=== PATIENT | female | born 1955 | race Caucasian/White ===

== ENCOUNTER → 2016-12-26 | Outpatient (CLI) | payer OTHER ==
--- NOTE | 2016-12-26 16:23 | BD ---
EXAMINATION TYPE: MG DEXA axial skeleton. DATE OF EXAM: 12/26/2016 10:04 AM COMPARISON: NONE CLINICAL HISTORY: 61-year-old female n95.1 post menopausal symptoms Height: 63.5 Weight: 213 FRAX RISK QUESTIONS: Alcohol (3 or more units per day): NO Family History (Parent hip fracture): NO Glucocorticoids (More than 3mos): NO (Ex: prednisone, prednisolone, methylprednisolone, dexamethasone, and hydrocortisone). History of Fracture in Adulthood: NO Secondary Osteoporosis: NO 1. Type 1 Diabetes: NO 2. Hyperthyroidism: NO 3. Menopause before 45: NO 4. Malnutrition: NO 5. Chronic liver disease: NO Rheumatoid Arthritis: NO Current Tobacco Use: NO RISK FACTORS HISTORY OF: Family History of Osteoporosis: UNKNOWN Smoke tobacco: QUIT 16 YRS AGO Drink Alcohol: SOCIAL Active: YES Diet low in dairy products/other sources of calcium: NO Postmenopausal woman: YES AT 57 YRS OLD Take estrogen and/or progesterone medications: NONE NOW BUT TOOK FOR 3 YRS Lost more than 2 inches in height since high school: NO Adrenal Insufficiency: NO MEDICATIONS: Additional Medications: BP MEDS, TRAZODONE FOR SLEEPING ONLY, VIT D3, Additional History: NONE TO NOTE EXAM MEASUREMENTS: Bone mineral densitometry was performed using the [employer]. Bone mineral density as measured about the Lumbar spine is: ----- L1-L4(G/cm2): 1.343 T Score Values are as follows: ----- L1: 1.1 ----- L2: 0.8 ----- L3: 1.3 ----- L4: 2.0 ----- L1-L4: 1.4 Bone mineral density THIS IS HER FIRST BONE DENSITY STUDY......BASELINE Bone mineral density about the R hip (g/cm2): 1.158 Bone mineral density about the L hip (g/cm2): 1.177 T Score values are as follows: -----R Neck: 0.9 -----L Neck: 1.0 -----R Intertrochanter: 1.5 -----L Intertrochanter: 1.9 Bone mineral density THIS IS THE PATIENTS FIRST BONE DENSITY STUDY.......BASELINE FRAX %'S: FOR MAJOR OSTEOPOROTIC FX: 4.9%.......FOR HIP FX: 0.0% PROBABILITY OF FX IN 10 YRS TIME IMPRESSION: Normal bone mineral density as measured in the lumbar spine and both hips. Rescreen in 5 years. NOTE: T-SCORE=SD OF THE YOUNG ADULT MEAN.
--- NOTE | 2016-12-27 10:09 | MM ---
Reason for exam: screening (asymptomatic). Last mammogram was performed 1 year ago. History: Patient is postmenopausal and had first child at age 34. Took estrogen for 3 years beginning at age 57. Took progesterone for 3 years beginning at age 57. Physical Findings: A clinical breast exam by your physician is recommended on an annual basis and results should be correlated with mammographic findings. MG 3D Screening Mammo W/Cad Bilateral CC and MLO view(s) were taken. Prior study comparison: December 23, 2015, bilateral MG 3d screening mammo w/cad. December 22, 2014, bilateral MG screening mammo w CAD. There are scattered fibroglandular densities. There is no discrete abnormality. No significant changes when compared with prior studies. ASSESSMENT: Negative, BI-RAD 1 RECOMMENDATION: Routine screening mammogram of both breasts in 1 year.
== END | disposition home or self-care (01) ==
LOC: RADMAMWWP 09:28
PROVIDERS: ATTEND Obstetrics & Gynecology
DX: Z12.31 Encounter for screening mammogram for malignant neoplasm of breast (principal); N95.1 Menopausal and female climacteric states
CPT/HCPCS: 77080; 77063; G0202

== ENCOUNTER → 2017-12-27 | Outpatient (CLI) | payer BC ==
--- NOTE | 2017-12-29 08:50 | MM ---
Reason for exam: screening (asymptomatic). Last mammogram was performed 1 year ago. History: Patient is postmenopausal and had first child at age 34. Took estrogen for 3 years beginning at age 57. Took progesterone for 3 years beginning at age 57. Physical Findings: A clinical breast exam by your physician is recommended on an annual basis and results should be correlated with mammographic findings. MG Screening Mammo w CAD Bilateral CC and MLO view(s) were taken. Prior study comparison: December 26, 2016, bilateral MG 3d screening mammo w/cad. December 23, 2015, bilateral MG 3d screening mammo w/cad. No significant changes when compared with prior studies. ASSESSMENT: Negative, BI-RAD 1 RECOMMENDATION: Routine screening mammogram of both breasts in 1 year.
== END | disposition home or self-care (01) ==
LOC: RADMAMWWP 15:37
PROVIDERS: ATTEND Obstetrics & Gynecology
DX: Z12.31 Encounter for screening mammogram for malignant neoplasm of breast (principal)
CPT/HCPCS: 77067

== ENCOUNTER → 2019-01-09 | Outpatient (CLI) | payer BC ==
--- NOTE | 2019-01-11 09:35 | MM ---
Reason for exam: screening (asymptomatic). Last mammogram was performed 1 year ago. History: Patient is postmenopausal and had first child at age 34. Took estrogen for 3 years beginning at age 57. Took progesterone for 3 years beginning at age 57. Physical Findings: A clinical breast exam by your physician is recommended on an annual basis and results should be correlated with mammographic findings. MG Screening Mammo w CAD Bilateral CC and MLO view(s) were taken. Prior study comparison: December 27, 2017, bilateral MG screening mammo w CAD. December 26, 2016, bilateral MG 3d screening mammo w/cad. The breast tissue is heterogeneously dense. This may lower the sensitivity of mammography. No suspicious abnormality in the left breast. Right upper outer quadrant middle depth focal asymmetry. ASSESSMENT: Incomplete: need additional imaging evaluation, BI-RAD 0 RECOMMENDATION: Special view mammogram of the right breast. If lesion persists on supplemental views, image directed ultrasound is recommended. [facility] will attempt to contact patient to return for supplemental views and ultrasound if indicated.
== END | disposition home or self-care (01) ==
LOC: RADMAMWWP 14:05
PROVIDERS: ATTEND Obstetrics & Gynecology
DX: Z12.31 Encounter for screening mammogram for malignant neoplasm of breast (principal)
CPT/HCPCS: 77067

== ENCOUNTER → 2019-01-22 | Outpatient (CLI) | payer BC ==
--- NOTE | 2019-01-23 08:24 | USB ---
Reason for exam: additional evaluation requested from abnormal screening. History: Patient is postmenopausal and had first child at age 34. Took estrogen for 3 years beginning at age 57. Took progesterone for 3 years beginning at age 57. US Breast Workup Limited RT Right limited breast ultrasound including focal area of concern, retroareolar and axilla demonstrates no cystic or solid lesion seen. No suspicious sonographic abnormality. These results were verbally communicated with the patient and result sheet given to the patient on 01/22/19. ASSESSMENT: Negative, BI-RAD 1 RECOMMENDATION: Return to routine screening mammogram schedule for both breasts.
--- NOTE | 2019-01-23 08:24 | MM ---
Reason for exam: additional evaluation requested from abnormal screening. Last mammogram was performed less than 1 month ago. History: Patient is postmenopausal and had first child at age 34. Took estrogen for 3 years beginning at age 57. Took progesterone for 3 years beginning at age 57. Physical Findings: Nurse Summary: 0.5 x 1cm nodule in the right breast at 12 o'clock (nurse ts). MG Work Up Mamm w CAD RT Spot compression CC, spot compression MLO, and LM view(s) were taken of the right breast. Prior study comparison: January 09, 2019, bilateral MG screening mammo w CAD. December 27, 2017, bilateral MG screening mammo w CAD. The breast tissue is heterogeneously dense. This may lower the sensitivity of mammography. Right upper outer quadrant focal asymmetry improves on additional views however precautionary ultrasound will be performed. Additionally nursing palpated a mass at this location. These results were verbally communicated with the patient and result sheet given to the patient on 01/22/19. ASSESSMENT: Incomplete: need additional imaging evaluation, BI-RAD 0 RECOMMENDATION: Ultrasound of the right breast.
== END | disposition home or self-care (01) ==
LOC: RADMAMWWP 14:15
PROVIDERS: ATTEND Obstetrics & Gynecology
DX: R92.8 Other abnormal and inconclusive findings on diagnostic imaging of breast (principal)
CPT/HCPCS: 77065

== ENCOUNTER → 2020-04-24 | Outpatient (CLI) | payer BC ==
--- NOTE | 2020-04-27 10:38 | MM ---
Reason for exam: screening (asymptomatic). Last mammogram was performed 1 year and 3 months ago. History: Patient is postmenopausal and had first child at age 34. Took estrogen for 3 years beginning at age 57. Took progesterone for 3 years beginning at age 57. Physical Findings: A clinical breast exam by your physician is recommended on an annual basis and results should be correlated with mammographic findings. MG Screening Mammo w CAD Bilateral CC and MLO view(s) were taken. Prior study comparison: January 22, 2019, right breast MG work up mamm w CAD RT. January 09, 2019, bilateral MG screening mammo w CAD. There are scattered fibroglandular densities. Asymmetric breast tissue right stable upper outer quadrant. There is no discrete abnormality. ASSESSMENT: Negative, BI-RAD 1 RECOMMENDATION: Routine screening mammogram of both breasts in 1 year.
== END | disposition home or self-care (01) ==
LOC: RADMAMWWP 13:07
PROVIDERS: ATTEND Obstetrics & Gynecology
DX: Z12.31 Encounter for screening mammogram for malignant neoplasm of breast (principal)
CPT/HCPCS: 77067

== ENCOUNTER → 2021-10-22 | Outpatient (CLI) | payer BC ==
--- NOTE | 2021-10-25 09:11 | MM ---
Reason for exam: screening (asymptomatic). Last mammogram was performed 1 year and 6 months ago. History: Patient is postmenopausal and had first child at age 34. Took estrogen for 3 years beginning at age 57. Took progesterone for 3 years beginning at age 57. Physical Findings: A clinical breast exam by your physician is recommended on an annual basis and results should be correlated with mammographic findings. MG Screening Mammo w CAD Bilateral CC and MLO view(s) were taken. Prior study comparison: April 24, 2020, bilateral MG screening mammo w CAD. January 22, 2019, right breast MG work up mamm w CAD RT. There are scattered fibroglandular densities. There are benign appearing round calcifications in the left breast. There is no discrete abnormality. ASSESSMENT: Benign, BI-RAD 2 RECOMMENDATION: Routine screening mammogram of both breasts in 1 year.
== END | disposition home or self-care (01) ==
LOC: RADMAMWWP 09:53
PROVIDERS: ATTEND Family Medicine
DX: Z12.31 Encounter for screening mammogram for malignant neoplasm of breast (principal); Z78.0 Asymptomatic menopausal state
CPT/HCPCS: 77067

== ENCOUNTER 2022-09-12 20:23 | Emergency (ER) | payer BC ==
[2022-09-12 20:33] VITALS: TEMP 98.9
[2022-09-12] MEDS ORDERED: SODIUM CHLORIDE 0.9% 1,000 ML IV ONE (22:32)
--- NOTE | 2022-09-12 22:59 | XR ---
EXAMINATION TYPE: XR chest 2V DATE OF EXAM: 09/12/2022 COMPARISON: 03/17/2014 HISTORY: Chest pain TECHNIQUE: FINDINGS: Heart and mediastinum are normal. Lungs are clear. Diaphragm is normal. Bony thorax appears normal. IMPRESSION: Normal chest. No adverse change.
[2022-09-12 23:12] LABS: Basophils # (A) 0.1 k/uL (0-0.2); Basophils % (A) 1 %; Eosinophils # (A) 0.2 k/uL (0-0.7); Eosinophils % (A) 1 %; HCT 43.6 % (34.0-46.0); HGB 15.3 gm/dL (11.4-16.0); Lymphocytes # (A) 2.4 k/uL (1.0-4.8); Lymphocytes % (A) 21 %; MCH 30.1 pg (25.0-35.0); MCHC 35.2 g/dL (31.0-37.0); MCV 85.5 fL (80.0-100.0); Mean Platelet Volume 8.5; Monocytes # (A) 0.7 k/uL (0-1.0); Monocytes % (A) 6 %; Neutrophils # (A) 7.8 k/uL (1.3-7.7); Neutrophils % (A) 69 %; Platelet Count 269 k/uL (150-450); RDW 13.3 % (11.5-15.5); WBC 11.3 k/uL (3.8-10.6)
[2022-09-12 23:26] LABS: INR 0.9 (<1.2); Partial Thromboplastin Time 23.9 sec (22.0-30.0); Prothrombin Time 10.2 sec (9.0-12.0)
[2022-09-12 23:58] LABS: ALT 26 U/L (4-34); AST 25 U/L (14-36); African American GFR (CKD) >90 (>60 ml/min/1.73 sqM); Albumin 4.1 g/dL (3.5-5.0); Alkaline Phosphatase 100 U/L (38-126); Anion Gap 9 mmol/L; Blood Urea Nitrogen 19 mg/dL (7-17); Carbon Dioxide 28 mmol/L (22-30); Chloride 101 mmol/L (98-107); Glucose 123 mg/dL (74-99); Magnesium 1.8 mg/dL (1.6-2.3); Non-African American GFR(CKD) >90 (>60 ml/min/1.73 sqM); Potassium 2.9 mmol/L (3.5-5.1); Sodium 138 mmol/L (137-145); Total Bilirubin 0.4 mg/dL (0.2-1.3); Total Protein 7.1 g/dL (6.3-8.2)
[2022-09-13] MEDS ORDERED: POTASSIUM CHLORIDE ER 20 MEQ TAB.ER PO STA (00:03)
[2022-09-13 00:13] VITALS: BP 131/83; PULSE 75; RESP 16
--- NOTE | 2022-09-13 00:43 | ED ---
General Adult HPI - General Chief complaint: Upper Respiratory Infection Stated complaint: High Heart rate, Fever Time Seen by Provider: 09/12/22 21:38 Source: patient Mode of arrival: ambulatory Limitations: no limitations - History of Present Illness Initial comments: 66-year-old female past history of hypertension presents to the emergency department for cough, congestion and fever. She was woken up in the middle of the night last night to her apple watch which was telling her that her heart rate was 120. Patient admits that she was helping palpitations. Denies any medication use for her symptoms. She denies any chest pain. No shortness of breath. No sick contacts with similar symptoms. No previous cardiac history. No calf pain or swelling. No history of DVT or PE. No other alleviating, precipitating laughing factors - Related Data Home Medications Medication Instructions Recorded Confirmed Aspirin EC [Ecotrin] 325 mg PO DAILY 03/17/14 09/12/22 Multivitamins, Thera [Multivitamin] 1 tab PO DAILY 03/17/14 09/12/22 Chlorthalidone [Hygroton] 25 mg PO DAILY 05/16/14 09/12/22 allopurinoL 300 mg PO DAILY 09/12/22 09/12/22 amLODIPine [Norvasc] 5 mg PO DAILY 09/12/22 09/12/22 Allergies Allergy/AdvReac Type Severity Reaction Status Date / Time Penicillins Allergy Rash/Hives Verified 09/12/22 22:43 Sulfa (Sulfonamide Allergy Rash/Hives Verified 09/12/22 22:43 Antibiotics) venom-honey bee AdvReac Swelling Verified 09/12/22 22:43 [bee venom (honey bee)] Review of Systems ROS Statement: Those systems with pertinent positive or pertinent negative responses have been documented in the HPI. ROS Other: All systems not noted in ROS Statement are negative. Past Medical History Past Medical History: Hypertension Additional Past Medical History / Comment(s): vertigo History of Any Multi-Drug Resistant Organisms: None Reported Past Surgical History: Tonsillectomy, Tubal Ligation Additional Past Surgical History / Comment(s): D&C Past Anesthesia/Blood Transfusion Reactions: No Reported Reaction Past Psychological History: No Psychological Hx Reported Past Alcohol Use History: Occasional Past Drug Use History: None Reported General Exam Limitations: no limitations General appearance: alert, in no apparent distress Head exam: Present: atraumatic, normocephalic, normal inspection Eye exam: Present: normal appearance, PERRL, EOMI. Absent: scleral icterus, conjunctival injection, periorbital swelling ENT exam: Present: mucous membranes moist, other (nasal congestion) Neck exam: Present: normal inspection. Absent: tenderness, meningismus, lymphadenopathy Respiratory exam: Present: normal lung sounds bilaterally. Absent: respiratory distress, wheezes, rales, rhonchi, stridor Cardiovascular Exam: Present: regular rate, normal rhythm, normal heart sounds. Absent: systolic murmur, diastolic murmur, rubs, gallop, clicks GI/Abdominal exam: Present: soft, normal bowel sounds. Absent: distended, tenderness, guarding, rebound, rigid Extremities exam: Present: normal inspection, full ROM, normal capillary refill. Absent: tenderness, pedal edema, joint swelling, calf tenderness Back exam: Present: normal inspection Neurological exam: Present: alert, oriented X3, CN II-XII intact Psychiatric exam: Present: normal affect, normal mood Skin exam: Present: warm, dry, intact, normal color. Absent: rash Course Vital Signs 09/12/22 09/13/22 20:28 00:13 Temperature 98.9 F Pulse Rate 95 75 Respiratory 18 16 Rate Blood Pressure 157/69 131/83 O2 Sat by Pulse 98 98 Oximetry EKG Findings - EKG Comments: EKG Findings:: EKG interpreted by myself which demonstrated sinus rhythm with a rate of 84. VT interval 144. QRS 109. QTC of 440. Minimal ST depression 2, 3, aVF. No ST segment elevation. Medical Decision Making - Medical Decision Making Upon arrival patient is placed into room 11. A thorough history and physical exam was performed. Patient placed on continuous pulse ox and cardiac monitoring. 12-lead EKG was obtained. Trace studies were conducted. Chest x- rays performed. Patient is swabbed for Covid and influenza. Lab studies reveal a potassium of 2.9. This is replaced. Chest x-ray demonstrates no acute process. Patient has not had any tachycardia in the emergency departments. She will be discharged home at this time. Instructed to use Mucinex for congestion. Follow-up with her primary care doctor to have her potassium levels redrawn. Also recommend echo, stress test and Holter monitoring. Patient was agreeable to this plan. Return to the ER for any new or worsening symptoms. Patient discharged home in stable condition - Lab Data Result diagrams: 09/12/22 22:42 09/12/22 23:20 Lab Results 09/12/22 09/12/22 09/12/22 Range/Units 21:33 21:33 22:42 WBC 11.3 H (3.8-10.6) k/uL RBC 5.10 (3.80-5.40) m/uL Hgb 15.3 (11.4-16.0) gm/dL Hct 43.6 (34.0-46.0) % MCV 85.5 (80.0-100.0) fL MCH 30.1 (25.0-35.0) pg MCHC 35.2 (31.0-37.0) g/dL RDW 13.3 (11.5-15.5) % Plt Count 269 (150-450) k/uL MPV 8.5 Neutrophils % 69 % Lymphocytes % 21 % Monocytes % 6 % Eosinophils % 1 % Basophils % 1 % Neutrophils # 7.8 H (1.3-7.7) k/uL Lymphocytes # 2.4 (1.0-4.8) k/uL Monocytes # 0.7 (0-1.0) k/uL Eosinophils # 0.2 (0-0.7) k/uL Basophils # 0.1 (0-0.2) k/uL PT (9.0-12.0) sec INR (<1.2) APTT (22.0-30.0) sec Sodium (137-145) mmol/L Potassium (3.5-5.1) mmol/L Chloride (98-107) mmol/L Carbon Dioxide (22-30) mmol/L Anion Gap mmol/L BUN (7-17) mg/dL Creatinine (0.52-1.04) mg/dL Est GFR (CKD-EPI)AfAm (>60 ml/min/1.73 sqM) Est GFR (CKD-EPI)NonAf (>60 ml/min/1.73 sqM) Glucose (74-99) mg/dL Calcium (8.4-10.2) mg/dL Magnesium (1.6-2.3) mg/dL Total Bilirubin (0.2-1.3) mg/dL AST (14-36) U/L ALT (4-34) U/L Alkaline Phosphatase (38-126) U/L Troponin I (0.000-0.034) ng/mL Total Protein (6.3-8.2) g/dL Albumin (3.5-5.0) g/dL Coronavirus (PCR) Not Detected (Not Detectd) Influenza Type A RNA Not Detected (Not Detectd) Influenza Type B (PCR) Not Detected (Not Detectd) 09/12/22 09/12/22 09/12/22 Range/Units 22:42 23:20 23:20 WBC (3.8-10.6) k/uL RBC (3.80-5.40) m/uL Hgb (11.4-16.0) gm/dL Hct (34.0-46.0) % MCV (80.0-100.0) fL MCH (25.0-35.0) pg MCHC (31.0-37.0) g/dL RDW (11.5-15.5) % Plt Count (150-450) k/uL MPV Neutrophils % % Lymphocytes % % Monocytes % % Eosinophils % % Basophils % % Neutrophils # (1.3-7.7) k/uL Lymphocytes # (1.0-4.8) k/uL Monocytes # (0-1.0) k/uL Eosinophils # (0-0.7) k/uL Basophils # (0-0.2) k/uL PT 10.2 (9.0-12.0) sec INR 0.9 (<1.2) APTT 23.9 (22.0-30.0) sec Sodium 138 (137-145) mmol/L Potassium 2.9 L (3.5-5.1) mmol/L Chloride 101 (98-107) mmol/L Carbon Dioxide 28 (22-30) mmol/L Anion Gap 9 mmol/L BUN 19 H (7-17) mg/dL Creatinine 0.64 (0.52-1.04) mg/dL Est GFR (CKD-EPI)AfAm >90 (>60 ml/min/1.73 sqM) Est GFR (CKD-EPI)NonAf >90 (>60 ml/min/1.73 sqM) Glucose 123 H (74-99) mg/dL Calcium 9.0 (8.4-10.2) mg/dL Magnesium 1.8 (1.6-2.3) mg/dL Total Bilirubin 0.4 (0.2-1.3) mg/dL AST 25 (14-36) U/L ALT 26 (4-34) U/L Alkaline Phosphatase 100 (38-126) U/L Troponin I <0.012 (0.000-0.034) ng/mL Total Protein 7.1 (6.3-8.2) g/dL Albumin 4.1 (3.5-5.0) g/dL Coronavirus (PCR) (Not Detectd) Influenza Type A RNA (Not Detectd) Influenza Type B (PCR) (Not Detectd) Disposition Clinical Impression: Cough, Palpitations, Hypokalemia Disposition: HOME SELF-CARE Condition: Stable Instructions (If sedation given, give patient instructions): Heart Palpitations (ED), Upper Respiratory Infection (ED) Additional Instructions: Please follow-up with your primary care doctor in 2-4 days. I recommend that they repeat your potassium levels to ensure that it has improved. I also recommended Holter monitoring, echo and stress testing. Return for any new or worsening symptoms Is patient prescribed a controlled substance at d/c from ED?: No Referrals: Robbie Colin MD [Primary Care Provider] - 1-2 days Time of Disposition: 00:50
== END 2022-09-13 01:26 | disposition home or self-care (01) ==
LOC: EC 20:23
DX: R00.2 Palpitations (principal); R05.9 Cough, unspecified; E87.6 Hypokalemia; I10 Essential (primary) hypertension; Z88.2 Allergy status to sulfonamides; Z91.030 Bee allergy status; Z79.82 Long term (current) use of aspirin; Z88.0 Allergy status to penicillin; Z20.822 Contact with and (suspected) exposure to COVID-19
CPT/HCPCS: 36415; 71046; 80053; 83735; 84484; 85025; 85610; 85730; 87502; 87635; 93005; 99284

== ENCOUNTER → 2022-10-25 | Outpatient (CLI) | payer BC ==
--- NOTE | 2022-10-25 10:45 | BD ---
EXAMINATION TYPE: Axial Bone Density DATE OF EXAM: 10/25/2022 COMPARISON: NONE CLINICAL HISTORY: 67 year old Female. ICD-10 CODE: Z78.0 asymptomatic menopausal state Height: 63 Weight: 205.8 FRAX RISK QUESTIONS: Alcohol (3 or more units per day): no Family History (Parent hip fracture): no Glucocorticoids (More than 3mos): no (Ex: prednisone, prednisolone, methylprednisolone, dexamethasone, and hydrocortisone). History of Fracture in Adulthood: no Secondary Osteoporosis: 1. Type 1 Diabetes: no 2. Hyperthyroidism: no 3. Menopause before 45: no 4. Malnutrition: no 5. Chronic liver disease: no Rheumatoid Arthritis: no Current Tobacco Use: no RISK FACTORS HISTORY OF: Surgery to Spine/Hip(right/left)/Wrist (right/left): no Family History of Osteoporosis: no Active: no Diet low in dairy products/other sources of calcium: yes Postmenopausal woman: yes Lost more than 2 inches in height since high school: no MEDICATIONS: Additional History: EXAM MEASUREMENTS: Bone mineral densitometry was performed using the [employer] System. Bone mineral density as measured about the Lumbar spine is: ----- L1-L4(G/cm2): 1.359 T Score Values are as follows: ----- L1: 1.3 ----- L2: 0.7 ----- L3: 1.4 ----- L4: 2.3 ----- L1-L4: 1.5 Bone mineral density has: increased 1.2 % since study of: 12.26.2016 Bone mineral density about the R hip (g/cm2): 1.142 Bone mineral density about the L hip (g/cm2): 1.070 T Score values are as follows: -----R Neck: 0.8 -----L Neck: 0.2 -----R Total: 1.9 -----L Total: 2.0 Bone mineral density has: decreased -4.5 % since study of: 12.26.2016 FRAX%s: The graph provided illustrates a 5.9% chance for a major osteoporotic fx and a 0.1% chance fo r the hips probability for fx in 10 years time. IMPRESSION: Normal (Values between +1 and -1 indicate normal bone mass). Consider repeating this study in 5 year s or sooner if there is some new clinical indication. NOTE: T-SCORE=SD OF THE YOUNG ADULT MEAN.
--- NOTE | 2022-10-25 12:10 | MM ---
Reason for Exam: Screening (asymptomatic). Last screening mammogram was performed 12 month(s) ago. Patient History: Menarche at age 15. First Full-Term at age 34. Late child-bearing (after 30). Postmenopausal. Estrogen for 3 years from age 57 until age 60. Progesterone for 3 years from age 57 until age 60. Risk Values: Fely 5 year model risk: 2.3%. NCI Lifetime model risk: 8.6%. Prior Study Comparison: 01/22/2019 Right Diagnostic Mammogram, [facility]. 04/24/2020 Bilateral Screening Mammogram, [facility]. 10/22/2021 Bilateral Screening Mammogram, [facility]. Tissue Density: There are scattered fibroglandular densities. Findings: Analyzed By CAD. There is no suspicious group of microcalcifications or new suspicious mass in either breast. Benign round calcification in the left breast. No significant change from prior exams. Overall Assessment: Benign, BI-RAD 2 Management: Screening Mammogram of both breasts in 1 year. A clinical breast exam by your physician is recommended on an annual basis and results should be correlated with mammographic findings. Electronically signed and approved by: Osmany Luna D.O.
== END | disposition home or self-care (01) ==
LOC: RADMAMWWP 09:11
PROVIDERS: ATTEND Family Medicine
DX: Z12.31 Encounter for screening mammogram for malignant neoplasm of breast (principal); Z78.0 Asymptomatic menopausal state
CPT/HCPCS: 77063; 77067; 77080

== ENCOUNTER 2022-10-27 08:09 | Day surgery (SDC) | payer BC ==
[2022-10-25 12:19] VITALS: BMI 36.3
--- NOTE | 2022-10-27 06:05 | P.GSHP ---
History of Present Illness H&P Date: 10/27/22 CHIEF COMPLAINT: Colon screen HISTORY OF PRESENT ILLNESS: The patient is a 67-year-old female who presents for colon screen. Lower endoscopy was offered for further evaluation and management. PAST MEDICAL HISTORY: Please see list. PAST SURGICAL HISTORY: Please see list. MEDICATIONS: Please see list. ALLERGIES: Please see list. SOCIAL HISTORY: No illicit drug use FAMILY HISTORY: No reports of Crohn disease or ulcerative colitis. REVIEW OF ORGAN SYSTEMS: CONSTITUTIONAL: No reports of fevers or chills. PHYSICAL EXAM: VITAL SIGNS: Stable GENERAL: Well-developed pleasant in no acute distress. HEENT: No scleral icterus. Extraocular movements grossly intact. Moist buccal mucosa. NECK: Supple without lymphadenopathy. CHEST: Unlabored respirations. Equal bilateral excursions. CARDIOVASCULAR: Regular rate and rhythm. Distal 2+ pulses. ABDOMEN: Soft, nontender, nondistended. MUSCULOSKELETAL: No clubbing, cyanosis, or edema. ASSESSMENT: 1. Colon screen. PLAN: 1. Recommend proceeding with a lower endoscopy Past Medical History Past Medical History: Hyperlipidemia, Hypertension, Osteoarthritis (OA) Additional Past Medical History / Comment(s): "Sinus headache today". Vertigo. History of Any Multi-Drug Resistant Organisms: None Reported Past Surgical History: Tonsillectomy, Tubal Ligation Additional Past Surgical History / Comment(s): D&C. Past Anesthesia/Blood Transfusion Reactions: No Reported Reaction Additional Past Anesthesia/Blood Transfusion Reaction / Comment(s): Vertigo. Past Psychological History: No Psychological Hx Reported Smoking Status: Former smoker Past Alcohol Use History: Occasional Additional Past Alcohol Use History / Comment(s): Quit smoking 20 yrs ago. Past Drug Use History: None Reported - Past Family History Mother Family Medical History: Cancer Additional Family Medical History / Comment(s): Kidney cancer. Medications and Allergies Home Medications Medication Instructions Recorded Confirmed Type Aspirin EC [Ecotrin] 325 mg PO DAILY 03/17/14 10/25/22 History Multivitamins, Thera [Multivitamin] 1 tab PO DAILY 03/17/14 10/25/22 History Chlorthalidone [Hygroton] 25 mg PO DAILY 05/16/14 10/25/22 History allopurinoL 300 mg PO DAILY 09/12/22 10/25/22 History amLODIPine [Norvasc] 5 mg PO QAM 09/12/22 10/25/22 History Potassium Chloride [K-Tab ER] 10 meq PO DAILY 10/25/22 10/25/22 History Allergies Allergy/AdvReac Type Severity Reaction Status Date / Time Penicillins Allergy Rash/Hives Verified 10/25/22 12:08 Sulfa (Sulfonamide Allergy Rash/Hives Verified 10/25/22 12:08 Antibiotics) venom-honey bee AdvReac Swelling Verified 10/25/22 12:08 [bee venom (honey bee)]
[~2022-10-27 08:09] MED LIST: LACTATED RINGERS 1,000 ML IV SCH
[2022-10-27 08:30] VITALS: TEMP 97.5
[2022-10-27] MEDS ORDERED: PROPOFOL 10 MG/ML 20 ML VIAL IV ONE (08:51)
--- NOTE | 2022-10-27 09:17 | P.PCN ---
Date of Procedure: 10/27/22 Description of Procedure: PREOPERATIVE DIAGNOSIS: Personal history of colon polyps Colonoscopy screening POSTOPERATIVE DIAGNOSIS: Tubular adenoma sigmoid colon Sigmoid diverticulosis Internal hemorrhoids, grade 2 OPERATION: Colonoscopy to the ileocecal valve and appendiceal orifice, cecum Colonoscopy with hot snare polypectomy SURGEON: Jeanne Quiroz MD. ANESTHESIA: MAC. INDICATIONS: The patient is an 67-year-old female who presents personal history of colon polyps. Last colonoscopy over 5 years. Benefits and risks were described and informed consent was obtained. DESCRIPTION OF PROCEDURE: The patient had undergone Sutab prep. The patient had been brought into the operating room and laid in the left lateral decubitus position. After adequate intravenous sedation, the rectum was examined with 2% lidocaine jelly. External hemorrhoids were encountered. The rectal tone was within normal limits. No lesions were palpated in the rectal vault. An Olympus colonoscope was advanced until the cecum, ileocecal valve and appendiceal orifice were clearly viewed. The prep was excellent. Sigmoid diverticulosis was encountered. Colonic polyps were found and removed. No evidence of focal colitis was found. Retroflexion of the scope demonstrated grade 3 internal hemorrhoids without active bleeding or inflammation. The colon was desufflated. The patient had tolerated the procedure well. Withdrawal time was over 6 minutes. FINDINGS: Aronchick preparation quality scale 1 (1-5) Internal hemorrhoids, grade 3 External hemorrhoids, grade 3. No arteriovenous malformations. Sigmoid diverticulosis Removal of 1 polyps: - Snare polypectomy 15 cm from the anal verge, 5 mm tubulovillous adenoma, sigmoid colon No focal colitis. RECOMMENDATIONS: Repeat colonoscopy in 3 years, 2024 Plan - Discharge Summary Discharge Rx Participant: No New Discharge Prescriptions: Continue Aspirin EC [Ecotrin] 325 mg PO DAILY Multivitamins, Thera [Multivitamin (formulary)] 1 tab PO DAILY Chlorthalidone [Hygroton] 25 mg PO DAILY amLODIPine [Norvasc] 5 mg PO QAM allopurinoL 300 mg PO DAILY Potassium Chloride [K-Tab ER] 10 meq PO DAILY Discharge Medication List Aspirin EC [Ecotrin] 325 mg PO DAILY 03/17/14 [History] Multivitamins, Thera [Multivitamin (formulary)] 1 tab PO DAILY 03/17/14 [History] Chlorthalidone [Hygroton] 25 mg PO DAILY 05/16/14 [History] allopurinoL 300 mg PO DAILY 09/12/22 [History] amLODIPine [Norvasc] 5 mg PO QAM 09/12/22 [History] Potassium Chloride [K-Tab ER] 10 meq PO DAILY 10/25/22 [History] Follow up Appointment(s)/Referral(s): Jeanne Quiroz MD [STAFF PHYSICIAN] - As Needed Patient Instructions/Handouts: Diverticulosis Diet (GEN), Diverticulosis (DC), Colorectal Polyps (GEN) Activity/Diet/Wound Care/Special Instructions: Repeat colonoscopy 3 years, 2024 Discharge Disposition: HOME SELF-CARE
[2022-10-27 09:30] VITALS: BP 142/85; PULSE 82; RESP 15
== END 2022-10-27 09:50 | disposition home or self-care (01) ==
LOC: ORWHC2ENDO 08:09
PROVIDERS: ATTEND Surgery Plastic and Reconstructive Surgery
DX: Z12.11 Encounter for screening for malignant neoplasm of colon (principal); D12.5 Benign neoplasm of sigmoid colon; K57.30 Diverticulosis of large intestine without perforation or abscess without bleeding; E78.5 Hyperlipidemia, unspecified; I10 Essential (primary) hypertension; K64.8 Other hemorrhoids; M19.90 Unspecified osteoarthritis, unspecified site; Z79.82 Long term (current) use of aspirin; Z79.899 Other long term (current) drug therapy; Z87.19 Personal history of other diseases of the digestive system; Z87.891 Personal history of nicotine dependence; Z88.0 Allergy status to penicillin; Z88.2 Allergy status to sulfonamides; Z91.030 Bee allergy status
CPT/HCPCS: 88305; 45385; J2704

== ENCOUNTER → 2023-08-28 | Outpatient (CLI) | payer BC ==
--- NOTE | 2023-08-28 15:35 | CA ---
Transthoracic Echo Report Name: Augusta Barnes Age: 67 Gender: F : 1955 Exam Date: 08/28/2023 14:38 Exam Location: [place] [facility] Ht (in): 122 Wt (lb): 77 Ordering Physician: Robbie Colin MD Attending/Referring Phys: [id number], Cristi Software Writer Jennyfer Lucio, [facility] Procedure CPT: Indications: R01.1 Murmur Cardiac Hx: Technical Quality: Good Contrast 1: Total Dose (mL): Contrast 2: Total Dose (mL): MEASUREMENTS (Male / Female) Normal Values 2D ECHO LV Diastolic Diameter PLAX 4.3 cm 4.2 - 5.9 / 3.9 - 5.3 cm LV Systolic Diameter PLAX 3.2 cm IVS Diastolic Thickness 1.3 cm 0.6 - 1.0 / 0.6 - 0.9 cm LVPW Diastolic Thickness 1.0 cm 0.6 - 1.0 / 0.6 - 0.9 cm LV Relative Wall Thickness 0.5 RV Internal Dim ED PLAX 3.3 cm LA Systolic Diameter LX 3.5 cm 3.0 - 4.0 / 2.7 - 3.8 cm LV Diastolic Volume MOD 4C 100.1 cm??? LV Systolic Volume MOD 4C 38.2 cm??? LV Ejection Fraction MOD 4C 61.8 % LV Cardiac Index MOD 4C 2250.3 cm???/min???m??? LV Diastolic Length 4C 8.0 cm LV Systolic Length 4C 6.2 cm LV Diastolic Volume MOD 2C 100.8 cm??? LV Systolic Volume MOD 2C 48.2 cm??? LV Ejection Fraction MOD 2C 52.1 % LV Cardiac Index MOD 2C 1912.3 cm???/min???m??? LV Diastolic Length 2C 7.6 cm LV Systolic Length 2C 6.3 cm LA Volume 58.3 cm??? 18 - 58 / 22 - 52 cm??? LA Volume Index 36.6 cm???/m??? 16 - 28 cm???/m??? M-MODE Aortic Root Diameter MM 3.0 cm MV E Point Septal Separation 0.6 cm AV Cusp Separation MM 2.3 cm DOPPLER AV Peak Velocity 168.1 cm/s AV Peak Gradient 11.3 mmHg MV Area PHT 3.1 cm??? Mitral E Point Velocity 68.9 cm/s Mitral A Point Velocity 86.3 cm/s Mitral E to A Ratio 0.8 MV Deceleration Time 243.9 ms MV E' Velocity 7.4 cm/s Mitral E to MV E' Ratio 9.3 TR Peak Velocity 246.6 cm/s TR Peak Gradient 24.3 mmHg Right Ventricular Systolic Press 28.8 mmHg FINDINGS Left Ventricle Left ventricular ejection fraction is estimated at 55-60 %. Left ventricular cavity size normal. Mild concentric LVH Right Ventricle Mild right ventricular dilatation. Right ventricular systolic pressure within normal limits. Right Atrium Normal right atrial size. Left Atrium Mildly increased left atrial volume. Mildly increased left atrial area. Mitral Valve Structurally normal mitral valve. No mitral stenosis, regurgitation or prolapse. Aortic Valve Trileaflet aortic valve. No aortic valve stenosis or regurgitation. Tricuspid Valve Structurally normal tricuspid valve. Mild tricuspid regurgitation. Pulmonic Valve Structurally normal pulmonic valve. Trace to mild pulmonic regurgitation. Pericardium No pericardial effusion. Aorta Normal size aortic root and proximal ascending aorta. CONCLUSIONS Left ventricular ejection fraction is estimated at 55-60 %. Mild concentric LVH. No obvious regional wall motion abnormality. No significant valvular disease. No pericardial effusion. Previewed by: Dr Charbel Singh (Electronically Signed) Final Date: 28 August 2023 15:35
== END | disposition home or self-care (01) ==
LOC: RADECHMAIN 14:20
PROVIDERS: ATTEND Family Medicine
DX: R01.1 Cardiac murmur, unspecified (principal)
CPT/HCPCS: 93306

== ENCOUNTER → 2023-09-13 | Outpatient (CLI) | payer BC ==
--- NOTE | 2023-09-13 18:05 | US ---
EXAMINATION TYPE: US thyroid st tissue head/neck DATE OF EXAM: 09/13/2023 COMPARISON: NONE CLINICAL INDICATION: Female, 67 years old with history of E05.90 Thyrotoxicosis; Thyrotoxicosis. GLAND SIZE: Right Lobe: 4.7 x 2.5 x 2.2 cm Overall Parenchyma: heterogenous Left Lobe: 5.4 x 1.9 x 2.3 cm Overall Parenchyma: heterogenous Isthmus Thickness: 0.36 cm NODULES RIGHT: # of nodules measured on right: 2 1. 1.2 X 1.0 x 1.1 cm, mid mid, solid or almost completely solid, isoechoic nodule, which is taller than wide, with smooth margins, without echogenic foci. TR 4. Prior size: no prior 2. 1.9 X 1.9 x 1.0 cm, lower medial, solid or almost completely solid, hypoechoic nodule, which is wider than tall, with smooth margins, without echogenic foci. TR 3. Prior size: no prior LEFT: # of nodules measured on left: 1 1. 1.5 X 1.5 x 1.6 cm, mid mid, mixed cystic and solid, hypoechoic nodule, which is taller than wid e, with smooth margins, without echogenic foci. TR 4. Prior size: no prior ISTHMUS: # of nodules measured in the isthmus: 0 Bilateral neck scanned, no evidence of lymphadenopathy. IMPRESSION: 1. Left thyroid lobe 1.6 cm TR 4 nodule. Fine needle aspiration is recommended. 2. There are 2 right thyroid nodules with largest measuring 1.9 cm. Follow-up ultrasound in one year is recommended.
== END | disposition home or self-care (01) ==
LOC: RADUSWWP 16:51
PROVIDERS: ATTEND Family Medicine
DX: E04.2 Nontoxic multinodular goiter (principal); E05.90 Thyrotoxicosis, unspecified without thyrotoxic crisis or storm
CPT/HCPCS: 76536

== ENCOUNTER → 2023-11-13 | Outpatient (CLI) | payer BC ==
--- NOTE | 2023-11-13 15:14 | XR ---
EXAMINATION TYPE: XR Hip LT and AP Pelvis DATE OF EXAM: 11/13/2023 COMPARISON: None HISTORY: Sharp pain left groin TECHNIQUE: AP pelvis and two-view left hip FINDINGS: Femoral heads articulate with the acetabulum. Symphysis pubis and sacroiliac joints are nor mal. No acute fracture or dislocation is evident. Note is made of narrowing of the right joint space. Follow up exams can be performed 7-10 days from acute trauma for continued pain. IMPRESSION: 1. No acute osseous abnormality left hip
== END | disposition home or self-care (01) ==
LOC: RADXRMAIN 14:40
PROVIDERS: ATTEND Nurse Practitioner Family
DX: M25.552 Pain in left hip (principal)
CPT/HCPCS: 73502

== ENCOUNTER → 2023-11-15 | Outpatient (CLI) | payer BC ==
--- NOTE | 2023-11-19 15:36 | MM ---
Reason for Exam: Screening (asymptomatic). Last mammogram was performed 1 year(s) and 1 month(s) ago. Patient History: Menarche at age 15. First Full-Term at age 34. Late child-bearing (after 32). Postmenopausal. Estrogen for 3 years from age 57 until age 60. Progesterone for 3 years from age 57 until age 60. Risk Values: Fely 5 year model risk: 2.3%. NCI Lifetime model risk: 8.2%. Prior Study Comparison: 04/24/2020 Bilateral Screening Mammogram, [facility]. 10/22/2021 Bilateral Screening Mammogram, [facility]. 10/25/2022 Bilateral MG 3D screening mammo w/cad, [facility]. Tissue Density: There are scattered fibroglandular densities. Findings: Analyzed By CAD. The pattern is symmetrical and stable. No significant interval changes. No suspicious groups of microcalcifications, spiculated or lobular masses, architectural distortion or other secondary signs of malignancy are mammographically apparent. Overall Assessment: Benign, BI-RAD 2 Management: Screening Mammogram of both breasts in 1 year. A negative mammogram report should not preclude additional follow up of suspicious palpable abnormalities. Patient should continue monthly self breast exam. A clinical breast exam by your physician is recommended on an annual basis and results should be correlated with mammographic findings. Electronically signed and approved by: Romero Ca D.O. Radiologis
== END | disposition home or self-care (01) ==
LOC: RADMAMWWP 14:16
PROVIDERS: ATTEND Family Medicine
DX: Z12.31 Encounter for screening mammogram for malignant neoplasm of breast (principal); Z78.0 Asymptomatic menopausal state
CPT/HCPCS: 77063; 77067

== ENCOUNTER → 2024-02-26 | Outpatient (CLI) | payer BC ==
--- NOTE | 2024-02-27 07:28 | US ---
EXAMINATION TYPE: US carotid duplex BILAT DATE OF EXAM: 02/26/2024 COMPARISON: NONE CLINICAL INDICATION: Female, 68 years old with history of I65.23 OCCLUSION AND STENOSIS OF BILATERAL CAROTID; stenosis TECHNIQUE: Carotid duplex ultrasound examination. Indirect Doppler criteria was utilized. FINDINGS: EXAM MEASUREMENTS: RIGHT: Peak Systolic Velocity (PSV) cm/sec ----- Right CCA: 113 ----- Right ICA: 101 ----- Right ECA: 132 ICA/CCA ratio: .9 RIGHT: End Diastole cm/sec ----- Right CCA: 19.9 ----- Right ICA: 26.3 ----- Right ECA: 24.5 LEFT: Peak Systolic Velocity (PSV) cm/sec ----- Left CCA: 111 ----- Left ICA: 95.1 ----- Left ECA: 111 ICA/CCA ratio: .9 LEFT: End Diastole cm/sec ----- Left CCA: 19 ----- Left ICA: 26.3 ----- Left ECA: 19.9 VERTEBRALS (direction of flow): Right Vertebral: Antegrade Left Vertebral: Antegrade Rhythm: Normal [place] NOTES: No significant stenosis seen IMPRESSION: No evidence for hemodynamically significant stenosis. Criteria for Assigning % of Stenosis / Diameter reduction (Estimation based on the indirect measurements of the internal carotid artery velocities (ICA PSV). 1. Normal (no stenosis)=ICA PSV < 125 cm/s: ratio < 2.0: ICA EDV<40 cm/s. 2. Less than 50% stenosis=ICA PSV < 125 cm/s: ratio < 2.0: ICA EDV<40 cm/s. 3. 50 to 69% stenosis=ICA PSV of 125 to 230 cm/s: ration 2.0 ? 4.0: ICA EDV 40-100 cm/s. 4. Greater than 70% stenosis to near occlusion= ICA PSV > 230 cm/s: ratio > 4.0: ICA EDV > 100 cm/s. 5. Near occlusion= ICA PSV velocities may be low or undetectable: variable ratio and ICA EDV. 6. Total occlusion=unable to detect flow.
== END | disposition home or self-care (01) ==
LOC: RADUSWWP 15:18
PROVIDERS: ATTEND Internal Medicine
DX: I65.23 Occlusion and stenosis of bilateral carotid arteries (principal)
CPT/HCPCS: 93880

== ENCOUNTER 2024-04-11 17:20 | Emergency (ER) | payer BC ==
[2024-04-11 17:28] VITALS: TEMP 97.9
--- NOTE | 2024-04-11 18:09 | ED ---
Extremity Problem HPI - General Chief complaint: Extremity Problem,Nontraumatic Stated complaint: L leg edema Time Seen by Provider: 04/11/24 17:40 Source: patient, RN notes reviewed Mode of arrival: ambulatory Limitations: no limitations - History of Present Illness Initial comments: 68-year-old female with past medical history of hypertension presenting to the ER with chief complaint of bilateral leg swelling and pain x 3 and half weeks. States she has pain in her calves after she has been on her feet for long periods of time. States they are not currently painful or swollen because she has not been on her feet today but she is very concerned for a blood clot. Denies chest pain or shortness of breath. She takes medication for blood pressure and an aspirin. Denies blood thinners. Denies history of DVT. Denies recent travel, surgeries. She is a non-smoker. Denies injury or trauma. Denies numbness or tingling. States her PCP ordered an ultrasound to rule out blood clots however she wanted this ultrasound done today. - Related Data Home Medications Medication Instructions Recorded Confirmed Atorvastatin [Lipitor] 40 mg PO HS 04/11/24 04/11/24 amLODIPine [Norvasc] 10 mg PO DIRECTED 04/11/24 04/11/24 lisinopriL [Zestril] 20 mg PO DIRECTED 04/11/24 04/11/24 Allergies Allergy/AdvReac Type Severity Reaction Status Date / Time Penicillins Allergy Rash/Hives Verified 04/11/24 17:47 Sulfa (Sulfonamide Allergy Rash/Hives Verified 04/11/24 17:47 Antibiotics) venom-honey bee Allergy Swelling Verified 04/11/24 17:47 [bee venom (honey bee)] Review of Systems ROS Statement: Those systems with pertinent positive or pertinent negative responses have been documented in the HPI. ROS Other: All systems not noted in ROS Statement are negative. Past Medical History Past Medical History: Hypertension Additional Past Medical History / Comment(s): vertigo History of Any Multi-Drug Resistant Organisms: None Reported Past Surgical History: Tonsillectomy, Tubal Ligation Additional Past Surgical History / Comment(s): D&C Past Anesthesia/Blood Transfusion Reactions: No Reported Reaction Past Psychological History: No Psychological Hx Reported Smoking Status: Former smoker Past Alcohol Use History: Occasional Past Drug Use History: None Reported General Exam Limitations: no limitations General appearance: alert, in no apparent distress Head exam: Present: atraumatic, normocephalic, normal inspection Eye exam: Present: normal appearance, PERRL, EOMI. Absent: scleral icterus, conjunctival injection, periorbital swelling ENT exam: Present: normal exam, mucous membranes moist Neck exam: Present: normal inspection. Absent: tenderness, meningismus, lymphadenopathy Respiratory exam: Present: normal lung sounds bilaterally. Absent: respiratory distress, wheezes, rales, rhonchi, stridor Cardiovascular Exam: Present: regular rate, normal rhythm, normal heart sounds. Absent: systolic murmur, diastolic murmur, rubs, gallop, clicks Extremities exam: Present: normal inspection, full ROM, normal capillary refill, other (No calf tenderness, erythema, or edema. Negative Homans. Full range of motion of bilateral knees, ankles, and all digits. Full sensation. Dorsalis pedis pulses intact bilaterally.). Absent: tenderness, pedal edema, joint swelling, calf tenderness Course Vital Signs 04/11/24 17:22 Temperature 97.9 F Pulse Rate 105 H Respiratory 18 Rate Blood Pressure 158/82 O2 Sat by Pulse 99 Oximetry Medical Decision Making - Medical Decision Making Was pt. sent in by a medical professional or institution (, PA, PRODUCT SUPPORT SALES REPRESENTATIVE, urgent care, hospital, or skilled nursing...) When possible be specific @ -No Did you speak to anyone other than the patient for history (EMS, parent, family, police, friend...)? What history was obtained from this source @ -Patient's daughter is present upon examination Did you review nursing and triage notes (agree or disagree)? Why? @ -I reviewed and agree with nursing and triage notes Were old charts reviewed (outside hosp., previous admission, EMS record, old EKG, old radiological studies, urgent care reports/EKG's, skilled nursing records)? Report findings @ -No old charts were reviewed Differential Diagnosis (chest pain, altered mental status, abdominal pain women, abdominal pain men, vaginal bleeding, weakness, fever, dyspnea, syncope, headache, dizziness, GI bleed, back pain, seizure, CVA, palpatations, mental health, musculoskeletal)? @ -Differential Musculoskeletal Dependent edema, CHF, CKD, muscular strain, contusion, ligament sprain, fracture, arthritis, septic arthritis, bursitis, cellulitis, muscle spasm, nerve compression, DVT, arterial occlusion, herpes zoster, electrolyte abnormality, tumor.... This is not meant to be in all inclusive list EKG interpreted by me (3pts min.). @ -None X-rays interpreted by me (1pt min.). @ -None done CT interpreted by me (1pt min.). @ -None done U/S interpreted by me (1pt. min.). @ -Bilateral ultrasounds negative for DVT What testing was considered but not performed or refused? (CT, X-rays, U/S, labs)? Why? @ -Chest x-ray not performed due to no history of CHF or chest pain, shortness of breath What meds were considered but not given or refused? Why? @ -None Did you discuss the management of the patient with other professionals ( professionals i.e. , PA, PRODUCT SUPPORT SALES REPRESENTATIVE, lab, RT, psych nurse, clinical social work therapist, dealer analyst, teacher, school services officer, immigration case manager)? Give summary @ -No Was smoking cessation discussed for >3mins.? @ -No Was critical care preformed (if so, how long)? @ -No Were there social determinants of health that impacted care today? How? (Homelessness, low income, unemployed, alcoholism, drug addiction, transportation, low edu. Level, literacy, decrease access to med. care, half-way, rehab)? @ -No Was there de-escalation of care discussed even if they declined (Discuss DNR or withdrawal of care, Hospice)? DNR status @ -No What co-morbidities impacted this encounter? (DM, HTN, Smoking, COPD, CAD, Cancer, CVA, ARF, Chemo, Hep., AIDS, mental health diagnosis, sleep apnea, morbid obesity)? @ -None Was patient admitted / discharged? Hospital course, mention meds given and route, prescriptions, significant lab abnormalities, going to OR and other pertinent info. @ -Patient was discharged. Patient was seen and evaluated for bilateral leg edema and pain x 3 weeks. Patient is not currently having symptoms but wants to rule out blood clot today. Patient is neurovascularly intact. Bilateral ultrasounds are negative for DVT. Lab work unremarkable. Discussed with patient and daughter there is no sign of DVT, CHF, renal or liver failure upon examination that is causing symptoms today. Discussed likely diagnosis of d ependent edema. Supportive care such as compression socks discussed. Advised to follow closely with PCP. Strict return/alarm symptoms discussed with patient in detail and she shows understanding and agrees with plan. Case discussed with my attending Dr. Rdz. Patient discharged in stable condition. Undiagnosed new problem with uncertain prognosis? @ -No Drug Therapy requiring intensive monitoring for toxicity (Heparin, Nitro, Insulin, Cardizem)? @ -No Were any procedures done? @ -No Diagnosis/symptom? @ -Dependent edema Acute, or Chronic, or Acute on Chronic? @ -Acute Uncomplicated (without systemic symptoms) or Complicated (systemic symptoms)? @ -Uncomplicated Side effects of treatment? @ -No Exacerbation, Progression, or Severe Exacerbation? @ -No Poses a threat to life or bodily function? How? (Chest pain, [place], [place], pneumonia, PE, COPD, DKA, ARF, appy, cholecystitis, CVA, Diverticulitis, Homicidal, Suicidal, threat to staff... and all critical care pts) @ -No - Lab Data Result diagrams: 04/11/24 18:14 04/11/24 18:14 Lab Results 04/11/24 04/11/24 04/11/24 Range/Units 18:14 18:14 18:14 WBC 6.5 (3.8-10.6) k/uL RBC 4.50 (3.80-5.40) m/uL Hgb 13.5 (11.4-16.0) gm/dL Hct 40.4 (34.0-46.0) % MCV 89.9 (80.0-100.0) fL MCH 30.1 (25.0-35.0) pg MCHC 33.5 (31.0-37.0) g/dL RDW 14.0 (11.5-15.5) % Plt Count 265 (150-450) k/uL MPV 7.8 Neutrophils % 62 % Lymphocytes % 27 % Monocytes % 5 % Eosinophils % 4 % Basophils % 1 % Neutrophils # 4.0 (1.3-7.7) k/uL Lymphocytes # 1.7 (1.0-4.8) k/uL Monocytes # 0.3 (0-1.0) k/uL Eosinophils # 0.2 (0-0.7) k/uL Basophils # 0.1 (0-0.2) k/uL PT 11.0 (10.0-12.5) sec INR 1.0 (<1.2) APTT 22.3 (22.0-30.0) sec Sodium 142 (137-145) mmol/L Potassium 4.1 (3.5-5.1) mmol/L Chloride 111 H (98-107) mmol/L Carbon Dioxide 27 (22-30) mmol/L Anion Gap 4 mmol/L BUN 16 (7-17) mg/dL Creatinine 0.60 (0.52-1.04) mg/dL Est GFR (CKD-EPI)AfAm >90 (>60 ml/min/1.73 sqM) Est GFR (CKD-EPI)NonAf >90 (>60 ml/min/1.73 sqM) Glucose 98 (74-99) mg/dL Calcium 9.5 (8.4-10.2) mg/dL Total Bilirubin 0.8 (0.2-1.3) mg/dL AST 31 (14-36) U/L ALT 30 (4-34) U/L Alkaline Phosphatase 79 (38-126) U/L NT-Pro-B Natriuret Pep 81 pg/mL Total Protein 7.0 (6.3-8.2) g/dL Albumin 4.2 (3.5-5.0) g/dL Disposition Clinical Impression: Dependent edema Disposition: HOME SELF-CARE Condition: Stable Instructions (If sedation given, give patient instructions): Leg Edema (ED) Additional Instructions: Please follow-up with PCP for further evaluation. Please return to the Emergency Department if symptoms worsen or any other concerns. Is patient prescribed a controlled substance at d/c from ED?: No Referrals: Amor Perea MD [Primary Care Provider] - 1-2 days Time of Disposition: 19:50
[2024-04-11 18:32] LABS: Basophils # (A) 0.1 k/uL (0-0.2); Basophils % (A) 1 %; Eosinophils # (A) 0.2 k/uL (0-0.7); Eosinophils % (A) 4 %; HCT 40.4 % (34.0-46.0); HGB 13.5 gm/dL (11.4-16.0); Lymphocytes # (A) 1.7 k/uL (1.0-4.8); Lymphocytes % (A) 27 %; MCH 30.1 pg (25.0-35.0); MCHC 33.5 g/dL (31.0-37.0); MCV 89.9 fL (80.0-100.0); Mean Platelet Volume 7.8; Monocytes # (A) 0.3 k/uL (0-1.0); Monocytes % (A) 5 %; Neutrophils % (A) 62 %; Platelet Count 265 k/uL (150-450); WBC 6.5 k/uL (3.8-10.6)
[2024-04-11 18:43] LABS: ALT 30 U/L (4-34); AST 31 U/L (14-36); African American GFR (CKD) >90 (>60 ml/min/1.73 sqM); Albumin 4.2 g/dL (3.5-5.0); Alkaline Phosphatase 79 U/L (38-126); Anion Gap 4 mmol/L; Blood Urea Nitrogen 16 mg/dL (7-17); Calcium 9.5 mg/dL (8.4-10.2); Carbon Dioxide 27 mmol/L (22-30); Chloride 111 mmol/L (98-107); Glucose 98 mg/dL (74-99); Non-African American GFR(CKD) >90 (>60 ml/min/1.73 sqM); Potassium 4.1 mmol/L (3.5-5.1); Sodium 142 mmol/L (137-145); Total Bilirubin 0.8 mg/dL (0.2-1.3)
[2024-04-11 18:52] LABS: NT-Pro-B-Type Natriuretic Pept 81 pg/mL
[2024-04-11 18:53] LABS: Partial Thromboplastin Time 22.3 sec (22.0-30.0)
--- NOTE | 2024-04-11 19:09 | US ---
EXAMINATION TYPE: US venous doppler duplex LE BI DATE OF EXAM: 04/11/2024 6:30 PM COMPARISON: NONE CLINICAL INDICATION: Female, 68 years old with history of LE edema/pain; Patient states leg swelling for about 3 weeks, pain started recently. SIDE PERFORMED: Bilateral TECHNIQUE: The lower extremity deep venous system is examined utilizing real time linear array sonog luzma with graded compression, doppler sonography and color-flow sonography. VESSELS IMAGED: Common Femoral Vein Deep Femoral Vein Greater Saphenous Vein * Femoral Vein Popliteal Vein Small Saphenous Vein * Proximal Calf Veins (* superficial vessels) Right Leg: Negative for DVT Left Leg: Negative for DVT IMPRESSION: No evidence for DVT within the bilateral lower extremities imaged from the groin to the upper calves.
[2024-04-11 19:57] VITALS: BP 119/74; PULSE 69; RESP 16
== END 2024-04-11 19:56 | disposition home or self-care (01) ==
LOC: EC 17:20
DX: R60.0 Localized edema (principal); Z87.891 Personal history of nicotine dependence; Z88.0 Allergy status to penicillin; Z88.2 Allergy status to sulfonamides; Z91.030 Bee allergy status
CPT/HCPCS: 36415; 80053; 83880; 85025; 85610; 85730; 93970; 99284

== ENCOUNTER → 2024-06-03 | Outpatient (CLI) | payer BC ==
[2024-06-03 14:24] VITALS: BP 155/82; PULSE 57; RESP 18; TEMP 98.1
--- NOTE | 2024-06-03 16:26 | P.SLEEP ---
History of Present Illness DATE: 06/03/2024 CONSULTATION/NEW PATIENT EVALUATION HISTORY OF PRESENT ILLNESS/SLEEP-WAKE EVALUATION: 68-year-old lady had been e valuated in the sleep center for possible obstructive sleep apnea hypopnea syndrome. SLEEP SCHEDULE: Usually sleep schedule from 9:30 PM to 3:30 AM on weekdays and from 10 PM to 4 AM on weekend. FALLING ASLEEP: Patient has difficulties to fall asleep, although no TV in bedroom. DURING SLEEP: Patient sleeps in different positions with snoring and awakenings from sleep 3 times with dry mouth, sweating, restless leg symptoms. No history of hypnogogical hallucinations, sleep paralysis, or cataplexy. DURING THE DAY/WAKE STATE: In the morning patient wake up tired, falling asleep during the day. [place] sleepiness scale is 7. Patient may take nap at 3 PM. PAST MEDICAL HISTORY: Hypertension, vertigo, hyperlipidemia, gestational diabetes, knee arthritis. PAST SURGICAL HISTORY: Carotid endarterectomy. MEDICATIONS: Please see below. SOCIAL HISTORY: Please see below. FAMILY HISTORY: Sleep apnea, emphysema, heart problems, stroke, during the sleep. REVIEW OF SYSTEMS: Snoring, multiple awakenings from sleep. No fevers. No double vision. No recent chest pain. No shortness of breath. No abdominal pain. No bleeding episodes. No blood in urine. No seizure episodes. PHYSICAL EXAMINATION: GENERAL: A pleasant patient without any distress. VITAL SIGNS: Please see below, weight 200.0 pounds, BMI 35.5. HEENT: PERRLA, EOMI. Evaluation of oropharynx showed tongue protrudes midline, low position of soft palate Mallampati 3, some restrictions of nasal breathing, possibly nasal septal deviation. NECK: Supple. No JVD. Thyroid is not palpable. 16-1/3 inches in circumference. LUNGS: Clear to percussion and to auscultation. Good air exchange. No wheezing or rhonchi. HEART: S1, S2 regular. No murmurs, gallops or rubs. ABDOMEN: Soft and nontender. Bowel sounds are present. No organomegaly appreciated. EXTREMITIES: No clubbing or cyanosis. BLACKJACK SUPERVISOR: Awake, alert, and oriented x3. Cranial nerves 2 to 7 intact. There is no fasciculation or atrophy noted. No focal deficits observed. ASSESSMENT: 1. Snoring, multiple awakenings from sleep, low position of soft palate Mallampati 3, some restriction of nasal breathing, wide neck 16-1/3 inches in circumference. Obstructive sleep apnea hypopnea syndrome. 2. Obesity, BMI 35.5. 3. Hypertension. 4. Vertigo. 5. Hyperlipidemia. 6 . Status post carotid endarterectomy. 7. History of gestational diabetes. 8. Knee arthritis. PLAN: 1. Home sleep apnea test for evaluation of patient's breathing during sleep. 2. Following plan after reading sleep study 3. Preferable position during sleep on the side. 4. No driving if patient feels any sleepiness. Patient is aware of civil and criminal liability for unsafe driving. 5. Sleep hygiene with regular sleep time for at least 7.5-8 hours. 6. Watching and losing weight. Thank you very much for referring this patient for consultation. Sincerely, Lee Valenzuela MD, PhD, FAASM. Diplomat of [place] [employer], Sleep Medicine Board by [place] [employer] [place] [employer] [facility] [place] cc: Amor Perea MD Past Medical History Past Medical History: Hyperlipidemia, Hypertension Additional Past Medical History / Comment(s): vertigo, PLACED ON A PILL SOME YEARS AGO FOR WHAT I THINK THEY SAID WAS PERIMENOPAUSAL BLEEDING, GESTATIONAL DIABETES. History of Any Multi-Drug Resistant Organisms: None Reported Past Surgical History: Adenoidectomy, Tonsillectomy, Tubal Ligation Additional Past Surgical History / Comment(s): D&C, COLONOSCOPY, CAROTID DOPPLER, THYROID BIOPSY Past Anesthesia/Blood Transfusion Reactions: No Reported Reaction Past Psychological History: No Psychological Hx Reported Smoking Status: Former smoker Past Alcohol Use History: Occasional Past Drug Use History: None Reported - Past Family History Father Family Medical History: CVA/TIA, Hypertension Additional Family Medical History / Comment(s): (BROTHER AND SISTER ALSO HAVE HTN), FATHER PASSED DURING HIS SLEEP, SNORING Mother Family Medical History: AFIB, AICD/Pacemaker, Cancer, Thyroid Disorder Additional Family Medical History / Comment(s): KIDNEY CANCER (TUMOR REMOVED), RESTLESS LEGS, SNORING, ENLARGED THYROID AND GOITER. (ALSO - SON WITH ASTHMA, BROTHER - EMPHYSEMA, SON AND BROTHER WITH SLEEP APNEA, BROTHER - CANCER, SISTER - ACID REFLUX), Medications and Allergies Home Medications Medication Instructions Recorded Confirmed Type Atorvastatin [Lipitor] 40 mg PO HS 04/11/24 06/03/24 History amLODIPine [Norvasc] 10 mg PO DIRECTED 04/11/24 04/11/24 History lisinopriL [Zestril] 20 mg PO DAILY 04/11/24 06/03/24 History Aspirin 325 mg PO DAILY 06/03/24 06/03/24 History Allergies Allergy/AdvReac Type Severity Reaction Status Date / Time Penicillins Allergy Rash/Hives Verified 04/11/24 17:47 Sulfa (Sulfonamide Allergy Rash/Hives Verified 04/11/24 17:47 Antibiotics) venom-honey bee Allergy Swelling Verified 04/11/24 17:47 [bee venom (honey bee)] Physical Exam Vitals: Vital Signs Temp Pulse Resp BP Pulse Ox 06/03/24 14:21 98.1 F 57 L 18 155/82 94 L Intake and Output 06/03/24 06/03/24 06/03/24 06:59 14:59 22:59 Other: Weight 90.718 kg Sleep Note - Sleep Data ESS Total: 7 - Sleep Note Sleep Note: Temperature: 98.1 F Pulse Rate: 57 Respiratory Rate: 18 Blood Pressure: 155/82 SpO2: 94 Height: 5 ft 2.7 in Weight: 90.718 kg BMI: Neck Circumference: 16.3
== END ==
LOC: 3 N SLEEP 14:07
PROVIDERS: ATTEND Internal Medicine
DX: G47.33 Obstructive sleep apnea (adult) (pediatric) (principal); E66.9 Obesity, unspecified; I10 Essential (primary) hypertension; R42 Dizziness and giddiness; E78.5 Hyperlipidemia, unspecified; M17.9 Osteoarthritis of knee, unspecified; Z98.890 Other specified postprocedural states; Z68.35 Body mass index [BMI] 35.0-35.9, adult; Z87.891 Personal history of nicotine dependence; Z88.0 Allergy status to penicillin; Z88.2 Allergy status to sulfonamides; Z91.030 Bee allergy status; Z79.899 Other long term (current) drug therapy; Z86.32 Personal history of gestational diabetes
CPT/HCPCS: 99211

== ENCOUNTER → 2024-06-25 | Outpatient (CLI) | payer BC ==
--- NOTE | 2024-06-28 15:58 | SLS ---
SLEEP STUDY PROCEDURE: Home sleep apnea test. CLINICAL: A home sleep apnea test has been done for confirmation of possible obstructive sleep apnea-hypopnea syndrome. DESCRIPTION OF PROCEDURE: Home sleep apnea test has been done following standard procedure with monitoring of respiration by pressure transducer, chest belt, and pulse oximeter. Raw data of sleep recording has been reviewed and is adequate. RESULTS: Recording done for 8 hours 54 minutes, evaluation time 8 hours 42 minutes. Respiratory channel showed 9 apneas and 52 hypopneas, with total apnea-hypopnea index 7.0, with oxygen desaturation to 88%. Heart rate in the range between 49 and 104, average 64. IMPRESSION: 1. Obstructive sleep apnea-hypopnea syndrome, in mild range. 2. Hypertension. Please see other impressions from consultation. PLAN: 1. The patient will be started on treatment with AutoPAP and should use equipment every night for the whole night. 2. Sleep hygiene with regular time in bed for at least 7.5 to 8 hours. 3. No driving if feeling sleepiness. 4. Watching and losing weight. 5. I will see patient for follow-up visit to evaluate clinical response on treatment, compliance with treatment and make any necessary adjustments related to mask fitting, pressure, and humidification. Thank you very much for allowing me to participate in the management of your patient. Sincerely, Lee Valenzuela MD, PhD, FAASM Diplomat of [place] [employer] Sleep Medicine Board of [place] [employer] Shank Skinner of [facility] [place] MMSHRADDHAL / MECHELLEN: [id number] /
== END ==
LOC: 3 N SLEEP 13:00
PROVIDERS: ATTEND Internal Medicine

== ENCOUNTER → 2024-09-26 | Outpatient (CLI) | payer BC ==
[2024-09-26 10:28] VITALS: BP 170/89; PULSE 58; RESP 16; TEMP 98.1
--- NOTE | 2024-09-26 12:25 | P.PROGSL ---
Subjective DATE: 09/26/2024 FOLLOW UP VISIT. Patient with obstructive sleep apnea hypopnea syndrome return to sleep center for follow-up visit. Recently patient had sleep study which documented obstructive sleep apnea hypopnea syndrome. Patient was initiated on PAP therapy and today is first visit after treatment was started. Patient was able to use PAP equipment every night for the whole night. The patient does not have significant problems with the mask, PAP pressure and humidification. [place] sleepiness scale is 7, which is normal. I checked information from PAP unit. PAP unit pressure 5-15, average 11.8 cm H2O. Usage is 100% for more then 4 hours, average 7.5 hours per night. Leak is 2.5 l/m, which is in acceptable range. Apnea Hypopnea Index is 0.8, which is normal. MEDICATIONS: Please see below During physical exam: GENERAL: A pleasant patient without any distress. VITAL SIGNS: Please see below, weight 200 pounds. HEENT: PERRLA, EOMI.low position of soft palate, Mallapati 3 . NECK: Supple. No JVD. LUNGS: Clear to percussion and to auscultation. Good air exchange. No wheezing or rhonchi. HEART: S1, S2 regular. ABDOMEN: Soft and nontender.[] EXTREMITIES: No clubbing or cyanosis. MANAGER BANK: Awake, alert, and oriented x3. No focal deficit. Impressions: 1. Obstructive sleep apnea-hypopnea syndrome. Patient demonstrated great compliance with treatment, benefiting from treatment. 2. Hypertension. 3. Obesity. 4. History of vertigo. 5. Hyperlipidemia. 6. Status post carotid endarterectomy. 7. History of gestational diabetes. 8. Knee arthritis. Plan: 1. Continue using PAP equipment every night for the whole night. 2. To change air filter at least 1-2 times per month. 3. PAP unit should stay lower then position of the head. 4. Advised patient to remove all remaining water from humidifier canister daily and make it dry after each usage. Refill canister with fresh distilled water before each usage. 5. Sleep hygiene with regular time in bed for at least 8 hours. 6. Precautions related to driving. No driving if feel any sleepiness. 7. I will maintain prescription for PAP supplies including mask, tube, filters. 8. Follow up visit in 8 months or earlier if patient has any problems. 9. Watching and losing weight. Thank you very much for allowing me to participate in the management of your p atient. Lee Valenzuela MD, PhD, FAASM. Diplomat of [place] [employer], Sleep Medicine Board by [place] [employer] Tender [facility] [place] Objective - Vital Signs Vital Signs: Vital Signs Temp 98.1 F 09/26/24 10:27 Pulse 58 L 09/26/24 10:27 Resp 16 09/26/24 10:27 BP 170/89 09/26/24 10:27 Pulse Ox 97 09/26/24 10:27 FiO2 Intake & Output 09/25/24 09/26/24 09/26/24 18:59 06:59 18:59 Weight 90.718 kg Home Medications: Home Medications Medication Instructions Recorded Confirmed Type Atorvastatin [Lipitor] 40 mg PO HS 04/11/24 06/03/24 History amLODIPine [Norvasc] 10 mg PO DIRECTED 04/11/24 04/11/24 History lisinopriL [Zestril] 20 mg PO DAILY 04/11/24 06/03/24 History Aspirin 325 mg PO DAILY 06/03/24 06/03/24 History
== END ==
LOC: 3 N SLEEP 10:15
PROVIDERS: ATTEND Internal Medicine
DX: G47.33 Obstructive sleep apnea (adult) (pediatric) (principal); I10 Essential (primary) hypertension; E66.9 Obesity, unspecified; E78.5 Hyperlipidemia, unspecified; M17.9 Osteoarthritis of knee, unspecified; Z99.89 Dependence on other enabling machines and devices; Z98.890 Other specified postprocedural states; Z86.69 Personal history of other diseases of the nervous system and sense organs; Z86.39 Personal history of other endocrine, nutritional and metabolic disease; Z88.0 Allergy status to penicillin; Z91.030 Bee allergy status; Z88.2 Allergy status to sulfonamides; Z79.899 Other long term (current) drug therapy; Z87.891 Personal history of nicotine dependence; Z68.36 Body mass index [BMI] 36.0-36.9, adult
CPT/HCPCS: 99212

== ENCOUNTER → 2024-10-21 | Outpatient (CLI) | payer BC ==
--- NOTE | 2024-10-21 14:34 | XR ---
EXAMINATION TYPE: XR Hip Complete RT DATE OF EXAM: 10/21/2024 2:30 PM COMPARISON: None. CLINICAL INDICATION: Female, 69 years old with history of M16.11, M17.11, M47.816, pain TECHNIQUE: XR Hip Complete RT XX views were obtained. FINDINGS: There is no acute fracture/dislocation evident. The joint space appears moderately narrowed. The ov erlying soft tissue appears unremarkable. IMPRESSION: No acute fracture or dislocation. [facility], , 10/21/2024 2:32 PM
--- NOTE | 2024-10-21 14:35 | XR ---
EXAMINATION TYPE: XR knee complete RT DATE OF EXAM: 10/21/2024 2:30 PM COMPARISON: None. CLINICAL INDICATION: Female, 69 years old with history of M16.11, M17.11, M47.816, pain TECHNIQUE: XR knee complete RT XX views were obtained. FINDINGS: There is no acute fracture/dislocation. The tri-compartment joint spaces appear within normal limits . Intercondylar spur formation seen. The overlying soft tissue appears unremarkable. IMPRESSION: No acute fracture or dislocation [facility], , 10/21/2024 2:33 PM
--- NOTE | 2024-10-21 14:38 | XR ---
EXAMINATION TYPE: XR lumbar spine 2 or 3V DATE OF EXAM: 10/21/2024 2:30 PM COMPARISON: None. CLINICAL INDICATION: Female, 69 years old with history of M16.11, M17.11, M47.816, TECHNIQUE: 3 views obtained FINDINGS: There are 5 lumbar type vertebral bodies identified. The lumbar spine shows satisfactory alignment without evidence of acute fracture or dislocation. Vertebral body heights are within normal limits. [id number] degenerative disc space narrowing L3-4 and L4-5. Minimal ventral spondylosi s. Mild to moderate lower lumbar facet joint arthropathy. The overlying soft tissue appears unremar kable. IMPRESSION: No acute fracture or dislocation is seen in the lumbar spine. ICD 10 NO FRACTURE, INITIAL EVALUATION [facility], , 10/21/2024 2:36 PM
== END | disposition home or self-care (01) ==
LOC: RADXRMAIN 14:07
PROVIDERS: ATTEND Internal Medicine
DX: M16.11 Unilateral primary osteoarthritis, right hip (principal); M17.11 Unilateral primary osteoarthritis, right knee; M47.816 Spondylosis without myelopathy or radiculopathy, lumbar region
CPT/HCPCS: 72100; 73502

== ENCOUNTER → 2024-11-21 | Outpatient (CLI) | payer BC ==
--- NOTE | 2024-11-21 14:08 | MM ---
Reason for Exam: Screening (asymptomatic). Last screening mammogram was performed 12 month(s) ago. Patient History: Menarche at age 15. First Full-Term at age 34. Late child-bearing (after 32). Postmenopausal. Estrogen for 3 years from age 57 until age 60. Progesterone for 3 years from age 57 until age 60. Risk Values: Fely 5 year model risk: 2.3%. NCI Lifetime model risk: 7.9%. Prior Study Comparison: 10/22/2021 Bilateral Screening Mammogram, [facility]. 10/25/2022 Bilateral MG 3D screening mammo w/cad, [facility]. 11/15/2023 Bilateral MG 3D screening mammo w/cad, [facility]. Tissue Density: There are scattered areas of fibroglandular density. Findings: Analyzed By CAD. Benign-appearing bilateral axillary lymph nodes are redemonstrated. There is no suspicious group of microcalcifications or new suspicious mass in either breast. Overall Assessment: Negative, BI-RAD 1 Management: Screening Mammogram of both breasts in 1 year. . Patient should continue monthly self-breast exams. A clinical breast exam by your physician is recommended on an annual basis. This exam should not preclude additional follow-up of suspicious palpable abnormalities. Note on Fely scores and lifetime risk: 1. A Fely score greater than 3% is considered moderate risk. If this is the case, consider specialist referral to assess eligibility for a risk reducing agent. 2. If overall lifetime risk for the development of breast cancer is 20% or higher, the patient may qualify for future screening with alternating mammogram and breast MRI. [facility], , 11/21/2024 2:04 PM. Electronically signed and approved by: Eladio Castrejon M.D.
== END | disposition home or self-care (01) ==
LOC: RADMAMWWP 12:18
PROVIDERS: ATTEND Internal Medicine
DX: Z12.31 Encounter for screening mammogram for malignant neoplasm of breast (principal); R92.323 Mammographic fibroglandular density, bilateral breasts; Z78.0 Asymptomatic menopausal state
CPT/HCPCS: 77063; 77067

== ENCOUNTER 2025-01-11 05:21 | Emergency (ER) | payer BC ==
[2025-01-11 05:31] VITALS: RESP 18
--- NOTE | 2025-01-11 05:58 | ED ---
General Adult HPI - General Source: patient Mode of arrival: wheelchair Limitations: no limitations <Jessie Garcia - Last Filed: 01/11/25 06:54> <Trevon Veronica - Last Filed: 01/11/25 09:14> - General Chief complaint: Nausea/Vomiting/Diarrhea Stated complaint: Bradycardia/N/V Time Seen by Provider: 01/11/25 05:30 - History of Present Illness Initial comments: 69-year-old female presents emergency department with nausea and vomiting. States that her symptoms started yesterday morning. Patient has had numerous episodes of nausea and vomiting to the point where she cannot hold much down. She denies any fevers. No cough or shortness of breath. Does admit to myalgias. No sick contacts with similar symptoms. Denies eating any tainted foods. She has mild abdominal ache but no localized pain. She does have history of hyperthyroid. States that she was recently started on a thyroid medication 1 month ago. This is her only new medication. She denies any chest pain or difficulty breathing. No back pain. No diarrhea, constipation, black or bloody stools. Last bowel movement was yesterday. No changes in her urination no other alleviating, precipitating modifying factors (Jessie Garcia) - Related Data Home Medications Medication Instructions Recorded Confirmed Atorvastatin [Lipitor] 40 mg PO HS 04/11/24 06/03/24 amLODIPine [Norvasc] 10 mg PO DIRECTED 04/11/24 04/11/24 lisinopriL [Zestril] 20 mg PO DAILY 04/11/24 06/03/24 Aspirin 325 mg PO DAILY 06/03/24 06/03/24 Allergies Allergy/AdvReac Type Severity Reaction Status Date / Time Penicillins Allergy Rash/Hives Verified 01/11/25 05:30 Sulfa (Sulfonamide Allergy Rash/Hives Verified 01/11/25 05:30 Antibiotics) venom-honey bee Allergy Swelling Verified 01/11/25 05:30 [bee venom (honey bee)] Review of Systems ROS Other: All systems not noted in ROS Statement are negative. <Jessie Garcia - Last Filed: 01/11/25 06:54> ROS Other: All systems not noted in ROS Statement are negative. <Trevon Veronica - Last Filed: 01/11/25 09:14> ROS Statement: Those systems with pertinent positive or pertinent negative responses have been documented in the HPI. Past Medical History Past Medical History: Hyperlipidemia, Hypertension, Thyroid Disorder Additional Past Medical History / Comment(s): vertigo, PLACED ON A PILL SOME Y EARS AGO FOR WHAT I THINK THEY SAID WAS PERIMENOPAUSAL BLEEDING, GESTATIONAL DIABETES. History of Any Multi-Drug Resistant Organisms: None Reported Past Surgical History: Adenoidectomy, Tonsillectomy, Tubal Ligation Additional Past Surgical History / Comment(s): D&C, COLONOSCOPY, CAROTID DOPPLER, THYROID BIOPSY Past Anesthesia/Blood Transfusion Reactions: No Reported Reaction Past Psychological History: No Psychological Hx Reported Smoking Status: Former smoker Past Alcohol Use History: Occasional Past Drug Use History: None Reported - Past Family History Father Family Medical History: CVA/TIA, Hypertension Additional Family Medical History / Comment(s): (BROTHER AND SISTER ALSO HAVE HTN), FATHER PASSED DURING HIS SLEEP, SNORING Mother Family Medical History: AFIB, AICD/Pacemaker, Cancer, Thyroid Disorder Additional Family Medical History / Comment(s): KIDNEY CANCER (TUMOR REMOVED), RESTLESS LEGS, SNORING, ENLARGED THYROID AND GOITER. (ALSO - SON WITH ASTHMA, BROTHER - EMPHYSEMA, SON AND BROTHER WITH SLEEP APNEA, BROTHER - CANCER, SISTER - ACID REFLUX), <JoseJessie Curtis - Last Filed: 01/11/25 06:54> General Exam Limitations: no limitations General appearance: alert, in no apparent distress Head exam: Present: atraumatic, normocephalic, normal inspection Eye exam: Present: normal appearance, PERRL, EOMI. Absent: scleral icterus, conjunctival injection, periorbital swelling ENT exam: Present: normal exam, mucous membranes moist Neck exam: Present: normal inspection. Absent: tenderness, meningismus, lymphadenopathy Respiratory exam: Present: normal lung sounds bilaterally. Absent: respiratory distress, wheezes, rales, rhonchi, stridor Cardiovascular Exam: Present: normal rhythm, bradycardia, normal heart sounds. Absent: systolic murmur, diastolic murmur, rubs, gallop, clicks GI/Abdominal exam: Present: soft, normal bowel sounds. Absent: distended, tenderness, guarding, rebound, rigid Extremities exam: Present: normal inspection, full ROM, normal capillary refill. Absent: tenderness, pedal edema, joint swelling, calf tenderness Back exam: Present: normal inspection Neurological exam: Present: alert, oriented X3, CN II-XII intact Psychiatric exam: Present: normal affect, normal mood Skin exam: Present: warm, dry, intact, normal color. Absent: rash <Jessie Garcia - Last Filed: 01/11/25 06:54> Course Vital Signs 01/11/25 01/11/25 05:29 06:59 Temperature 98.6 F 98.2 F Pulse Rate 59 L 52 L Respiratory 18 18 Rate Blood Pressure 138/77 143/78 O2 Sat by Pulse 98 99 Oximetry Medical Decision Making - Lab Data Result diagrams: 01/11/25 05:49 <Jessie Garcia - Last Filed: 01/11/25 06:54> - Lab Data Result diagrams: 01/11/25 05:49 01/11/25 05:49 <Trevon Veronica - Last Filed: 01/11/25 09:14> - Medical Decision Making Was pt. sent in by a medical professional or institution ([facility] To, HOME HEALTH CARE PROVIDER, urgent care, hospital, or halfway...) When possible be specific @ -No Did you speak to anyone other than the patient for history (EMS, parent, family, police, friend...)? What history was obtained from this source @ -No Did you review nursing and triage notes (agree or disagree)? Why? @ -I reviewed and agree with nursing and triage notes Were old charts reviewed (outside hosp., previous admission, EMS record, old EKG, old radiological studies, urgent care reports/EKG's, halfway records)? Report findings @ -No old charts were reviewed Differential Diagnosis (chest pain, altered mental status, abdominal pain women, abdominal pain men, vaginal bleeding, weakness, fever, dyspnea, syncope, headache, dizziness, GI bleed, back pain, seizure, CVA, palpatations, mental health, musculoskeletal)? @ -Gastroenteritis, influenza, COVID, hiatal hernia EKG interpreted by me (3pts min.). @ -yes and demonstrates sinus bradycardia with rate of 58. MO interval 148. QRS 120. QTc of 444. No acute ST segment elevation or depression X-rays interpreted by me (1pt min.). @ -None done CT interpreted by me (1pt min.). @ -None done U/S interpreted by me (1pt. min.). @ -None done What testing was considered but not performed or refused? (CT, X-rays, U/S, labs)? Why? @ -None What meds were considered but not given or refused? Why? @ -None Did you discuss the management of the patient with other professionals (professionals i.e. Dr., PA, HOME HEALTH CARE PROVIDER, lab, RT, psych nurse, social group worker, assistant nurse manager, teacher, staff air tactical officer, immigration case manager)? Give summary @ -Spoke with Dr. Veronica who will finish the final disposition of the patient Was smoking cessation discussed for >3mins.? @ -No Was critical care preformed (if so, how long)? @ -No Were there social determinants of health that impacted care today? How? (Homelessness, low income, unemployed, alcoholism, drug addiction, transportation, low edu. Level, literacy, decrease access to med. care, intermediate, rehab)? @ -No Was there de-escalation of care discussed even if they declined (Discuss DNR or withdrawal of care, Hospice)? DNR status @ -No What co-morbidities impacted this encounter? (DM, HTN, Smoking, COPD, CAD, Cancer, CVA, ARF, Chemo, Hep., AIDS, mental health diagnosis, sleep apnea, m orbid obesity)? @ -None Was patient admitted / discharged? Hospital course, mention meds given and route, prescriptions, significant lab abnormalities, going to OR and other pertinent info. @ -Upon arrival patient seen and evaluated in bed 18. Thorough history and physical exam was performed. IV access was established. Laboratory studies are conducted. She was given a liter bolus and 4 mg of Zofran. She will be signed out to Dr. Veronica pending labs Undiagnosed new problem with uncertain prognosis? @ -No Drug Therapy requiring intensive monitoring for toxicity (Heparin, Nitro, Insulin, Cardizem)? @ -No Were any procedures done? @ -No Diagnosis/symptom? @ -Acute nausea vomiting Acute, or Chronic, or Acute on Chronic? @ -Acute Uncomplicated (without systemic symptoms) or Complicated (systemic symptoms)? @ -Complicated Side effects of treatment? @ -No Exacerbation, Progression, or Severe Exacerbation? @ -No Poses a threat to life or bodily function? How? (Chest pain, USA, VT, pneumonia, PE, COPD, DKA, ARF, appy, cholecystitis, CVA, Diverticulitis, Homicidal, Suicidal, threat to staff... and all critical care pts) @ -No (JoseJessie Curtis) Patient is a 69-year-old female who was signed out to me pending reevaluation. Has been having nausea, vomiting, diarrhea since yesterday. Nonbilious nonbloody emesis as well as nonbloody diarrhea. No significant past medical history for abdominal issues. History of hypertension hyperlipidemia as well as thyroid disorder. Workup so far remarkable for slight leukocytosis of 11 which is likely reactive. Very very mild elevated LFTs and bilirubin likely related to dehydration and vomiting. TSH is low however this is expected with the patient's past medical history of hyperthyroidism and she recently started therapy for this. Viral swabs are negative. EKG shows sinus bradycardia per prior physicians interpretation. I evaluate the patient as she is still feeling nauseous. We are still waiting for urinalysis. I did offer her gallbladder ultrasound in addition to additional antiemetics and fluids. She was in agreement this plan. Gallbladder ultrasound is interpreted by myself reveals a nonobstructing stone versus polyp present. No evidence of cholecystitis. Viral swabs returned negative for any obvious infection. Thyroid function labs within acceptable limits considering the history. Urinalysis shows 2+ ketones for dehydration but no evidence of infection. On reevaluation, patient is improved. Tolerating oral intake. Discussed further imaging with CT scan versus discharge home, and as patient is feeling improved with no other significant findings on workup so far, she is in agreement discharge home. Recommended strict return precautions and follow-up with PCP in the next 1 to 3 days. Discussed diagnosis of suspected biliary colic however if pain changes, or symptoms worsen she can come back in for further workup. She was in agreement this plan. I will provide the patient with a prescription for ODT Zofran. I instructed the patient to follow up with their PCP in the next 1-3 days. I provided contact information for follow up with gastroenterology. I explained that the patient should return to the emergency department if they experience any worsening symptoms. Strict return precautions were discussed with the patient. The patient expressed understanding of these instructions. I answered all questions that the patient had. The patient was discharged home in good condition with their prescriptions and follow up information. Diagnosis/symptom? @ -Abdominal pain of unknown etiology, suspect biliary colic. Acute nausea and vomiting Acute, or Chronic, or Acute on Chronic? @ -Acute Uncomplicated (without systemic symptoms) or Complicated (systemic symptoms)? @ -Uncomplicated Side effects of treatment? @ -None Exacerbation, Progression, or Severe Exacerbation] @ -No Poses a threat to life or bodily function? @ -Unlikely at this time (Trevon Veronica) - Lab Data Lab Results 01/11/25 01/11/25 01/11/25 Range/Units 05:49 05:49 05:49 WBC 11.4 H (3.8-10.6) k/uL RBC 4.32 (3.80-5.40) m/uL Hgb 13.2 (11.4-16.0) gm/dL Hct 39.3 (34.0-46.0) % MCV 91.0 (80.0-100.0) fL MCH 30.6 (25.0-35.0) pg MCHC 33.6 (31.0-37.0) g/dL RDW 13.2 (11.5-15.5) % Plt Count 246 (150-450) k/uL MPV 8.9 Neutrophils % 83 % Lymphocytes % 10 % Monocytes % 6 % Eosinophils % 1 % Basophils % 0 % Neutrophils # 9.4 H (1.3-7.7) k/uL Lymphocytes # 1.2 (1.0-4.8) k/uL Monocytes # 0.7 (0-1.0) k/uL Eosinophils # 0.1 (0-0.7) k/uL Basophils # 0.0 (0-0.2) k/uL Sodium 140 (137-145) mmol/L Potassium 4.0 (3.5-5.1) mmol/L Chloride 105 (98-107) mmol/L Carbon Dioxide 23 (22-30) mmol/L Anion Gap 12 mmol/L BUN 19 H (7-17) mg/dL Creatinine 0.49 L (0.52-1.04) mg/dL Est GFR (CKD-EPI)AfAm >90 (>60 ml/min/1.73 sqM) Est GFR (CKD-EPI)NonAf >90 (>60 ml/min/1.73 sqM) Glucose 141 H (74-99) mg/dL Plasma Lactic Acid Blake (0.7-2.0) mmol/L Calcium 9.6 (8.4-10.2) mg/dL Total Bilirubin 1.6 H (0.2-1.3) mg/dL AST 42 H (14-36) U/L ALT 35 H (4-34) U/L Alkaline Phosphatase 93 (38-126) U/L Total Protein 7.3 (6.3-8.2) g/dL Albumin 4.2 (3.5-5.0) g/dL Amylase 60 (30-110) U/L Lipase 117 (23-300) U/L TSH 0.321 L (0.465-4.680) mIU/L Free T4 1.19 (0.78-2.19) ng/dL Urine Color Urine Appearance (Clear) Urine pH (5.0-8.0) Ur Specific Petros (1.001-1.035) Urine Protein (Negative) Urine Glucose (UA) (Negative) Urine Ketones (Negative) Urine Blood (Negative) Urine Nitrite (Negative) Urine Bilirubin (Negative) Urine Urobilinogen (<2.0) mg/dL Ur Leukocyte Esterase (Negative) Urine RBC (0-5) /hpf Urine WBC (0-5) /hpf Ur Squamous Epith Cells (0-4) /hpf Urine Mucus (None) /hpf Influenza Type A (PCR) (Not Detectd) Influenza Type B (PCR) (Not Detectd) RSV (PCR) (Not Detectd) SARS-CoV-2 (PCR) (Not Detectd) 01/11/25 01/11/25 01/11/25 Range/Units 06:14 06:30 07:47 WBC (3.8-10.6) k/uL RBC (3.80-5.40) m/uL Hgb (11.4-16.0) gm/dL Hct (34.0-46.0) % MCV (80.0-100.0) fL MCH (25.0-35.0) pg MCHC (31.0-37.0) g/dL RDW (11.5-15.5) % Plt Count (150-450) k/uL MPV Neutrophils % % Lymphocytes % % Monocytes % % Eosinophils % % Basophils % % Neutrophils # (1.3-7.7) k/uL Lymphocytes # (1.0-4.8) k/uL Monocytes # (0-1.0) k/uL Eosinophils # (0-0.7) k/uL Basophils # (0-0.2) k/uL Sodium (137-145) mmol/L Potassium (3.5-5.1) mmol/L Chloride (98-107) mmol/L Carbon Dioxide (22-30) mmol/L Anion Gap mmol/L BUN (7-17) mg/dL Creatinine (0.52-1.04) mg/dL Est GFR (CKD-EPI)AfAm (>60 ml/min/1.73 sqM) Est GFR (CKD-EPI)NonAf (>60 ml/min/1.73 sqM) Glucose (74-99) mg/dL Plasma Lactic Acid Blake 1.5 (0.7-2.0) mmol/L Calcium (8.4-10.2) mg/dL Total Bilirubin (0.2-1.3) mg/dL AST (14-36) U/L ALT (4-34) U/L Alkaline Phosphatase (38-126) U/L Total Protein (6.3-8.2) g/dL Albumin (3.5-5.0) g/dL Amylase (30-110) U/L Lipase (23-300) U/L TSH (0.465-4.680) mIU/L Free T4 (0.78-2.19) ng/dL Urine Color Yellow Urine Appearance Clear (Clear) Urine pH 7.5 (5.0-8.0) Ur Specific Petros 1.022 (1.001-1.035) Urine Protein 1+ H (Negative) Urine Glucose (UA) Negative (Negative) Urine Ketones 2+ H (Negative) Urine Blood Negative (Negative) Urine Nitrite Negative (Negative) Urine Bilirubin Negative (Negative) Urine Urobilinogen <2.0 (<2.0) mg/dL Ur Leukocyte Esterase Negative (Negative) Urine RBC 1 (0-5) /hpf Urine WBC 2 (0-5) /hpf Ur Squamous Epith Cells 1 (0-4) /hpf Urine Mucus Rare H (None) /hpf Influenza Type A (PCR) Not Detected (Not Detectd) Influenza Type B (PCR) Not Detected (Not Detectd) RSV (PCR) Not Detected (Not Detectd) SARS-CoV-2 (PCR) Not Detected (Not Detectd) Disposition <Jessie Garcia - Last Filed: 01/11/25 06:54> Is patient prescribed a controlled substance at d/c from ED?: No Time of Disposition: 09:10 <Trevon Veronica - Last Filed: 01/11/25 09:14> Clinical Impression: Abdominal pain of unknown etiology, Biliary colic, Nausea & vomiting Disposition: HOME SELF-CARE Condition: Good Instructions (If sedation given, give patient instructions): Abdominal Pain (ED), Acute Nausea and Vomiting (ED), Biliary Colic (ED) Additional Instructions: Your diagnosis is abdominal pain of unknown etiology with nausea and vomiting, suspect biliary colic. Gallbladder ultrasound shows a gallbladder polyp versus possible gallstone present. Does not appear to be causing inflammation or infection. Follow-up with GI physician as needed when you are feeling improved for further workup. Follow-up with your PCP in the next 1 to 3 days. Return if any worsening symptoms. Referrals: Amor Perea MD [Primary Care Provider] - 1-2 days Emily Groves MD [STAFF PHYSICIAN] - 1-2 days
[2025-01-11] MEDS: SODIUM CHLORIDE 0.9% 1,000 ML IV ONE ×2 (06:10→07:57)
[2025-01-11] MEDS: ONDANSETRON 4 MG/2 ML VIAL IVP STA (06:12)
[2025-01-11 06:38] LABS: ALT 35 U/L (4-34); AST 42 U/L (14-36); African American GFR (CKD) >90 (>60 ml/min/1.73 sqM); Albumin 4.2 g/dL (3.5-5.0); Alkaline Phosphatase 93 U/L (38-126); Amylase 60 U/L (30-110); Anion Gap 12 mmol/L; Blood Urea Nitrogen 19 mg/dL (7-17); Calcium 9.6 mg/dL (8.4-10.2); Carbon Dioxide 23 mmol/L (22-30); Chloride 105 mmol/L (98-107); Glucose 141 mg/dL (74-99); Lipase 117 U/L (23-300); Non-African American GFR(CKD) >90 (>60 ml/min/1.73 sqM); Sodium 140 mmol/L (137-145); Total Bilirubin 1.6 mg/dL (0.2-1.3); Total Protein 7.3 g/dL (6.3-8.2)
[2025-01-11 06:59] VITALS: TEMP 98.2
[2025-01-11 06:59] LABS: Basophils % (A) 0 %; Eosinophils # (A) 0.1 k/uL (0-0.7); Eosinophils % (A) 1 %; HCT 39.3 % (34.0-46.0); HGB 13.2 gm/dL (11.4-16.0); Lymphocytes # (A) 1.2 k/uL (1.0-4.8); Lymphocytes % (A) 10 %; MCH 30.6 pg (25.0-35.0); MCHC 33.6 g/dL (31.0-37.0); Mean Platelet Volume 8.9; Monocytes # (A) 0.7 k/uL (0-1.0); Monocytes % (A) 6 %; Neutrophils # (A) 9.4 k/uL (1.3-7.7); Neutrophils % (A) 83 %; Platelet Count 246 k/uL (150-450); RBC 4.32 m/uL (3.80-5.40); RDW 13.2 % (11.5-15.5); WBC 11.4 k/uL (3.8-10.6)
[2025-01-11 07:19] LABS: Influenza A Not Detected (Not Detectd); Influenza B Not Detected (Not Detectd); RSV Not Detected (Not Detectd)
[2025-01-11] MEDS: diphenhydrAMINE 50 MG/ML 1 ML VIAL IVP STA (07:57)
[2025-01-11] MEDS: METOCLOPRAMIDE 5 MG/ML 2 ML VIAL IVP STA (07:58)
[2025-01-11] MEDS: PANTOPRAZOLE 40 MG/10 ML VIAL IVP STA (07:58)
[2025-01-11 08:11] LABS: T4, Free (Free Thyroxine) 1.19 ng/dL (0.78-2.19)
[2025-01-11 08:11] LABS: Appearance,Urine Clear (Clear); Bilirubin,Urine Negative (Negative); Blood,Urine Negative (Negative); Color,Urine Yellow; Glucose,Urine (UA) Negative (Negative); Ketones,Urine 2+ (Negative); Leukocyte Esterase,Urine Negative (Negative); Mucus,Urine Rare /hpf; Nitrite,Urine Negative (Negative); PH, Urine 7.5 (5.0-8.0); Protein,Urine 1+ (Negative); RBC,Urine 1 /hpf (0-5); Specific Gravity,Urine 1.022 (1.001-1.035); Squamous Epithelial Cell,Urine 1 /hpf (0-4); Urobilinogen,Urine <2.0 mg/dL (<2.0); WBC,Urine 2 /hpf (0-5)
--- NOTE | 2025-01-11 08:32 | US ---
EXAMINATION TYPE: US gallbladder DATE OF EXAM: 01/11/2025 COMPARISON: NONE CLINICAL INDICATION: Female, 69 years old with history of n/v abd pain; N/V x 1 day TECHNIQUE: Grayscale and color Doppler imaging of the right upper quadrant was performed. FINDINGS: EXAM MEASUREMENTS: Liver Length: 18.9 cm Gallbladder Wall: 0.2 cm CBD: 0.3 cm Right Kidney: 11.5x4.8x5.3 cm [employer]ANT OPERATOR NOTES: Pancreas: Tail obscured by overlying bowel gas Liver: enlarged Gallbladder: small echogenic area measures 0.3x0.4cm. Area only visualized in supine position Evidence for sonographic Gonzalez's sign: No CBD: wnl Right Kidney: wnl exam limited by bowel gas and body habitus IMPRESSION: 1. Hepatomegaly. 2. Small adherent gallstone or gallbladder polyp. [facility], , 01/11/2025 8:30 AM
[2025-01-11 09:54] VITALS: BP 155/64; PULSE 79
[2025-01-11] MEDS: ONDANSETRON 4 MG ODT STARTER PACK 2 TAB BTL PO STA (09:54)
== END 2025-01-11 09:59 | disposition home or self-care (01) ==
LOC: EC 05:21
DX: R10.9 Unspecified abdominal pain (principal); K80.50 Calculus of bile duct without cholangitis or cholecystitis without obstruction; R11.2 Nausea with vomiting, unspecified; Z86.39 Personal history of other endocrine, nutritional and metabolic disease
CPT/HCPCS: 36415; 93005; 84439; 80053; 84443; 82150; 83605; 83690; 85025; 81001; 87636; 76705; 99284; 96374; 96375; 96361; J1200; J2765; J2405; S0119; J2470

== ENCOUNTER → 2025-02-11 | Outpatient (CLI) | payer BC ==
--- NOTE | 2025-02-11 10:21 | MR ---
EXAMINATION TYPE: MR liver wo/w con and mrcp DATE OF EXAM: 02/11/2025 6:56 AM COMPARISON: Gallbladder ultrasound January 11, 2025. CLINICAL INDICATION: Female, 69 years old with history of K82.4,R16.0, Abdomen pain, vomiting IV Contrast: 9 cc Gadobutrol (None if empty) CONTRAST: Standard multiplanar, multisequence MRI departmental protocol images were obtained without contrast a nd with 9 mL intravenous Gadobutrol gadolinium contrast. Thin and thick slice MRCP imaging performed on independent workstation. FINDINGS: Liver/gallbladder/pancreas/biliary system: Liver size upper limits of normal. No significant dropout identified. A subtle 2.9 cm area of T2 hyperintensity in the deep aspect of the liver is not reproduc ed on T1-weighted images of uncertain etiology, possible transient hepatic attenuation difference. Sl ightly asymmetric enhancement near this level is identified on delayed images. Solid mass at this lev el is not excluded. Gallbladder shows no internal gallstones. Pancreas is normal in size without jaquan d or cystic mass. MRCP images show no biliary or pancreatic ductal dilatation. Other: Lung bases are grossly clear. Small sliding hiatal hernia is present. Spleen and both adrenal glands are within normal limits. There are few subcentimeter thin-walled cysts scattered throughout t he bilateral kidneys. A few lesions are too small to definitively characterize given subcentimeter si ze. No hydronephrosis seen bilaterally. A few distal colonic diverticula are seen. No CT evidence for acute diverticulitis. No abnormal small or large bowel dilatation. IMPRESSION: 1. No acute findings are seen to account for patient's symptoms. No definitive internal gallstones or MRI evidence for acute cholecystitis. No abnormal biliary dilatation noted. 2. Possible subtle 2.9 cm deep hepatic solid mass. Etiology uncertain as does not have typical imagin g characteristics of FNH, adenoma, or HCC. Consider liver protocol CT without and with contrast foll ow-up to further evaluate. [facility], , 02/11/2025 10:19 AM
== END | disposition home or self-care (01) ==
LOC: RADMRIMAIN 06:03
PROVIDERS: ATTEND Internal Medicine
DX: K82.4 Cholesterolosis of gallbladder (principal); R16.0 Hepatomegaly, not elsewhere classified
CPT/HCPCS: 74183

== ENCOUNTER → 2025-02-18 | Outpatient (CLI) | payer BC ==
[2025-02-18 15:40] LABS: % Iron Saturation 24.05 (12.00-45.00)
[2025-02-18 16:05] LABS: Hepatitis A Antibody IgM Nonreactive (Nonreactive); Hepatitis B Core IgM Nonreactive (Nonreactive); Hepatitis B Surface Antigen Nonreactive (Nonreactive); Hepatitis C IgG Antibody Nonreactive (Nonreactive)
[2025-02-18 16:29] LABS: Ceruloplasmin 21.5 mg/dL (20.0-60.0)
[2025-02-19 10:22] LABS: Liver/Kidney Microsome Antibod 0.8 UNITS (<=20)
== END | disposition home or self-care (01) ==
LOC: LABWHC1 09:24
PROVIDERS: ATTEND Internal Medicine
DX: I10 Essential (primary) hypertension (principal); E78.2 Mixed hyperlipidemia; R79.9 Abnormal finding of blood chemistry, unspecified
CPT/HCPCS: 36415; 80074; 82390; 82525; 82728; 83516; 83540; 83550; 86038; 86376

== ENCOUNTER → 2025-02-20 | Outpatient (CLI) | payer BC ==
[2025-02-20 07:31] LABS: African American GFR (CKD) >90 (>60 ml/min/1.73 sqM); Blood Urea Nitrogen 13 mg/dL (7-17); Non-African American GFR(CKD) >90 (>60 ml/min/1.73 sqM)
--- NOTE | 2025-02-20 12:04 | CT ---
EXAMINATION TYPE: CT abdomen pelvis wo/w con DATE OF EXAM: 02/20/2025 9:37 AM COMPARISON: Correlation liver MRI 02/11/2025 CLINICAL INDICATION: Female, 69 years old with history of R16.0 Liver Mass; Liver mass. TECHNIQUE: CT of the abdomen and pelvis before and after administration of IV contrast. Additional d elayed images and coronal/sagittal reconstruction performed. Contrast used:100ml mL of Isovue 300 without and with IV Contrast, CT DLP: 2993.1 mGycm, Automated exposure control for dose reduction was used. FINDINGS: LOWER CHEST: Unremarkable ABDOMEN LIVER: Mildly enlarged at 19.2 cm. No focal liver lesion clearly depicted by CT. Portal venous system is patent. No focal lesion clearly appreciated on any of the contrast phases. GALLBLADDER AND BILE DUCTS: Unremarkable. PANCREAS: Unremarkable. SPLEEN: Unremarkable. ADRENAL GLANDS: Unremarkable. KIDNEYS AND URETERS: A few scattered tiny bilateral renal cortical cysts measuring up to 8 mm. PELVIS BLADDER: No evidence for wall thickening or mass given limitations of exam. REPRODUCTIVE: Uterus anteverted and both ovaries are visualized. Slightly distended right gonadal vei n questionable clinical significance. ABDOMEN & PELVIS STOMACH AND BOWEL: There is a small hiatal hernia. No evidence of bowel obstruction. Oral contrast pr ogressed in the proximal sigmoid. There is left-sided colonic diverticulosis. No pericolonic inflamma tory change. PERITONEUM/RETROPERITONEUM: Left abdominal Kelsey mesentery with scattered nonenlarged and borderline size nodes measuring up to 8 mm. Additional similar changes right lower quadrant lymph nodes measurin g up to 9 mm. VASCULATURE: No evidence of aortic aneurysm. MUSCULOSKELETAL: Moderate right and mild left hip degenerative change. No osseous destructive process . LYMPH NODES: No retroperitoneal or pelvic adenopathy. SOFT TUnremarkableNAL WALL: Unremarkable IMPRESSION: 1. Mild hepatomegaly at 19.2 cm. No significant fatty infiltration appreciated by CT. 2. No focal lesion is identified by CT corresponding to the deep centrally located area of altered si gnal on MRI. The absence of a focal lesion makes a central cholangiocarcinoma unlikely. Correlate wit h CA-19-9 levels and six-month follow-up MRI. One consideration for the MRI finding is focal fibrosis . 3. Numerous scattered nonenlarged and borderline sized mesenteric lymph nodes with scattered kelsey me sentery. Findings may reflect a mesenteric panniculitis or mesenteric adenitis. 6 month follow-up CT to exclude a more aggressive etiology. 4. Left-sided colonic diverticulosis without acute diverticulitis. [facility], , 02/20/2025 12:02 PM
== END | disposition home or self-care (01) ==
LOC: RADCTMAIN 06:52
PROVIDERS: ATTEND Internal Medicine
DX: R16.0 Hepatomegaly, not elsewhere classified (principal); K57.30 Diverticulosis of large intestine without perforation or abscess without bleeding
CPT/HCPCS: 82565; 84520; 74178; 36415; Q9967

== ENCOUNTER 2025-05-14 10:08 | Day surgery (SDC) | payer BC ==
[2025-05-12 15:09] VITALS: BMI 31.8
--- NOTE | 2025-05-14 09:03 | P.GSHP ---
History of Present Illness H&P Date: 05/14/25 CHIEF COMPLAINT: Dysphagia and colon screen HISTORY OF PRESENT ILLNESS: The patient is a 69-year-old female who presents with dysphagia, gastroesophageal reflux disease and need for colon screen. Upper and lower endoscopy were offered for further evaluation and management. PAST MEDICAL HISTORY: Please see list. PAST SURGICAL HISTORY: Please see list. MEDICATIONS: Please see list. ALLERGIES: Please see list. SOCIAL HISTORY: No illicit drug use FAMILY HISTORY: No reports of Crohn disease or ulcerative colitis. REVIEW OF ORGAN SYSTEMS: CONSTITUTIONAL: No reports of fevers or chills. GI: Denies any blood in stools or constipation. PHYSICAL EXAM: VITAL SIGNS: Stable GENERAL: Well-developed pleasant in no acute distress. HEENT: No scleral icterus. Extraocular movements grossly intact. Moist buccal mucosa. NECK: Supple without lymphadenopathy. CHEST: Unlabored respirations. Equal bilateral excursions. CARDIOVASCULAR: Regular rate and rhythm. Distal 2+ pulses. ABDOMEN: Soft, nondistended. MUSCULOSKELETAL: No clubbing, cyanosis, or edema. ASSESSMENT: 1. Dysphagia and gastroesophageal reflux disease 2. Colon screen. PLAN: 1. Recommend proceeding with an upper and lower endoscopy Past Medical History Past Medical History: GERD/Reflux, Hyperlipidemia, Hypertension, Osteoarthritis (OA), Sleep Apnea/CPAP/BIPAP, Thyroid Disorder Additional Past Medical History / Comment(s): hiatal hernia, vertigo,hx PERIMENOPAUSAL BLEEDING, GESTATIONAL DIABETE, uses cpap . History of Any Multi-Drug Resistant Organisms: None Reported Past Surgical History: Adenoidectomy, Tonsillectomy, Tubal Ligation Additional Past Surgical History / Comment(s): D&C, COLONOSCOPy, THYROID BIOPSY Past Anesthesia/Blood Transfusion Reactions: No Reported Reaction Additional Past Anesthesia/Blood Transfusion Reaction / Comment(s): vertigo Smoking Status: Former smoker - Past Family History Father Family Medical History: CVA/TIA, Hypertension Additional Family Medical History / Comment(s): (BROTHER AND SISTER ALSO HAVE HTN), FATHER PASSED DURING HIS SLEEP, SNORING Mother Family Medical History: AFIB, AICD/Pacemaker, Cancer, Thyroid Disorder Additional Family Medical History / Comment(s): KIDNEY CANCER (TUMOR REMOVED), RESTLESS LEGS, SNORING, ENLARGED THYROID AND GOITER. (ALSO - SON WITH ASTHMA, BROTHER - EMPHYSEMA, SON AND BROTHER WITH SLEEP APNEA, BROTHER - CANCER, SISTER - ACID REFLUX), Medications and Allergies Home Medications Medication Instructions Recorded Confirmed Type Atorvastatin [Lipitor] 40 mg PO HS 04/11/24 05/12/25 History lisinopriL [Zestril] 20 mg PO QAM 04/11/24 05/12/25 History Aspirin 325 mg PO HS 06/03/24 05/12/25 History Metoclopramide HCl [Reglan] 5 mg PO TID 05/12/25 05/12/25 History Multivitamin/Iron/Folic Acid 1 each PO DAILY 05/12/25 05/12/25 History [Centrum Women Tablet] Pantoprazole Sodium [Protonix] 40 mg PO QAM 05/12/25 05/12/25 History methIMAzole [Tapazole] 5 mg PO DAILY 05/12/25 05/12/25 History traMADol HCL 50 mg PO BID PRN 05/12/25 05/12/25 History Allergies Allergy/AdvReac Type Severity Reaction Status Date / Time insect venom Allergy Swelling Verified 05/12/25 14:55 Penicillins Allergy Rash/Hives Verified 05/12/25 14:55 Sulfa (Sulfonamide Allergy Rash/Hives Verified 05/12/25 14:55 Antibiotics) venom-honey bee Allergy Swelling Verified 05/12/25 14:55 [bee venom (honey bee)]
[2025-05-14 10:29] VITALS: TEMP 99.2
[2025-05-14] MEDS: LACTATED RINGERS 1,000 ML IV SCH (10:38)
[2025-05-14] MEDS: IV FLUID CONTINUATION 1,000 ML IV ONE (10:39)
[2025-05-14] MEDS ORDERED: PROPOFOL 10 MG/ML 20 ML VIAL IV ONE (10:42)
[2025-05-14] MEDS ORDERED: LIDOCAINE 1% INJ 10MG/ML (20 ML MDV) ONE (10:42)
--- NOTE | 2025-05-14 11:06 | P.PCN ---
Date of Procedure: 05/14/25 Description of Procedure: PREOPERATIVE DIAGNOSIS: Personal history of colon polyps Colonoscopy screening. POSTOPERATIVE DIAGNOSIS: Colonoscopy screening. Diverticulosis, scattered. OPERATION: Colonoscopy to the cecum, ileocecal valve and appendiceal orifice. SURGEON: Jeanne Quiroz MD. ANESTHESIA: MAC. INDICATIONS: The patient is a 69-year-old female who presents for colonoscopy screening. Last colonoscopy 5 years ago. Benefits and risks were described and informed consent was obtained. DESCRIPTION OF PROCEDURE: The patient had undergone Suprep. The patient had been brought into the operating room and laid in the left lateral decubitus position. After adequate intravenous sedation, the rectum was examined with 2% lidocaine jelly. External hemorrhoids were encountered. The rectal tone was within normal limits. No lesions were palpated in the rectal vault. An Olympus colonoscope was advanced until the cecum, ileocecal valve and appendiceal orifice were clearly viewed. The prep was excellent. Scattered diverticulosis was encountered. No colonic polyps were found. No evidence of focal colitis was found. Retroflexion of the scope demonstrated grade 3 internal hemorrhoids without active bleeding or inflammation. The colon was desufflated. The patient had tolerated the procedure well. Withdrawal time was over 6 minutes. FINDINGS: Aronchick preparation quality scale 1 (1-5) Internal hemorrhoids, grade 3 External prolapsed hemorrhoids, grade 3 No arteriovenous malformations. No adenomatous polyps. No focal colitis. Moderate pandiverticulosis RECOMMENDATIONS: Lower endoscopy in 5 years, 2029
--- NOTE | 2025-05-14 11:07 | P.PCN ---
Date of Procedure: 05/14/25 Description of Procedure: PREOPERATIVE DIAGNOSIS: Dysphagia Intractable nausea and vomiting POSTOPERATIVE DIAGNOSIS: Gastroesophageal reflux disease. Gastritis. Diaphragmatic hiatal hernia OPERATION: Esophagogastroduodenoscopy with cold forceps biopsies along esophagus, antrum and duodenum SURGEON: Jeanne Quiroz MD ANESTHESIA: MAC. INDICATIONS: The patient is a 69-year-old female who presents with dysphagia and reflux disease. Benefits and risks of the procedure were described. Informed consent was obtained. DESCRIPTION: The patient was brought into the endoscopy suite and laid in the left lateral decubitus position. An Olympus gastroscope was passed along the posterior oropharynx down to the distal esophagus where the squamocolumnar junction was encountered at 35 cm from the incisors. The stomach was entered and no bile reflux was found. Additional findings are listed below. Biopsies with cold forceps were obtained of the antrum. The first through third portion of the duodenum was examined. Retroflexion of the scope confirmed Hill grade 3 lower esophageal valve. The squamocolumnar junction demonstrated LA grade B erosive esophagitis. The stomach was desufflated. The patient tolerated the procedure well. FINDINGS: Squamocolumnar junction 35 cm from the incisors. Diaphragmatic hiatus at 40 cm. Hiatal hernia, 5 cm Hill grade 3 lower esophageal valve. LA grade B erosive esophagitis. Biopsies obtained Biopsies obtained of the duodenum. Chronic gastritis with biopsies obtained. RECOMMENDATIONS: Upper endoscopy as needed. Plan - Discharge Summary Discharge Rx Participant: No New Discharge Prescriptions: Continue Atorvastatin [Lipitor] 40 mg PO HS lisinopriL [Zestril] 20 mg PO QAM Aspirin 325 mg PO HS Pantoprazole Sodium [Protonix] 40 mg PO QAM Multivitamin/Iron/Folic Acid [Centrum Women Tablet] 1 each PO DAILY traMADol HCL 50 mg PO BID PRN PRN Reason: Pain Metoclopramide HCl [Reglan] 5 mg PO TID methIMAzole [Tapazole] 5 mg PO DAILY Discharge Medication List Atorvastatin [Lipitor] 40 mg PO HS 04/11/24 [History] lisinopriL [Zestril] 20 mg PO QAM 04/11/24 [History] Aspirin 325 mg PO HS 06/03/24 [History] Metoclopramide HCl [Reglan] 5 mg PO TID 05/12/25 [History] Multivitamin/Iron/Folic Acid [Centrum Women Tablet] 1 each PO DAILY 05/12/25 [History] Pantoprazole Sodium [Protonix] 40 mg PO QAM 05/12/25 [History] methIMAzole [Tapazole] 5 mg PO DAILY 05/12/25 [History] traMADol HCL 50 mg PO BID PRN 05/12/25 [History] Follow up Appointment(s)/Referral(s): Jeanne Quiroz MD [STAFF PHYSICIAN] - 06/10/25 10:00 am Patient Instructions/Handouts: Hiatal Hernia (DC), Diverticulosis Diet (GEN) Activity/Diet/Wound Care/Special Instructions: Repeat colonoscopy 5 years, 2030 Discharge Disposition: HOME SELF-CARE
[2025-05-14 11:31] VITALS: BP 133/75; PULSE 55; RESP 14
== END 2025-05-14 12:06 | disposition home or self-care (01) ==
LOC: ORWHC2ENDO 10:08
PROVIDERS: ATTEND Surgery Plastic and Reconstructive Surgery
DX: Z12.11 Encounter for screening for malignant neoplasm of colon (principal); K57.30 Diverticulosis of large intestine without perforation or abscess without bleeding; K64.2 Third degree hemorrhoids; K29.50 Unspecified chronic gastritis without bleeding; K21.00 Gastro-esophageal reflux disease with esophagitis, without bleeding; K44.9 Diaphragmatic hernia without obstruction or gangrene; I10 Essential (primary) hypertension; E78.5 Hyperlipidemia, unspecified; G47.33 Obstructive sleep apnea (adult) (pediatric); E07.9 Disorder of thyroid, unspecified; M19.90 Unspecified osteoarthritis, unspecified site; Z79.890 Hormone replacement therapy; Z79.82 Long term (current) use of aspirin; Z79.899 Other long term (current) drug therapy; Z86.0100 Personal history of colon polyps, unspecified; Z87.891 Personal history of nicotine dependence; Z88.0 Allergy status to penicillin; Z88.2 Allergy status to sulfonamides; Z91.030 Bee allergy status; Z91.038 Other insect allergy status
CPT/HCPCS: 45378; 43239; J2003; J2704; 88305